=== PATIENT | male | born 1955 | race Caucasian/White ===

== ENCOUNTER → 2016-08-02 | Outpatient (CLI) | payer BC ==
[~2016-08-02] MED LIST: ALBU18002 INH; ALBU1AER9 PO; ASCA500 PO; ASPI-232 PO; CHOL100010 PO; CHOL100041 PO; LISI-461 PO; METO-217 PO; MOME200A INH; MONT1TAB3 PO; MULT-506 PO; OXYC-57 PO; PRLSR20 PO; SNG10 PO; VITBC PO; WARF2TAB PO; ZINC PO
--- NOTE | 2016-08-02 12:51 | DIAGNOSTIC IMAGING REPORT ---
RIGHT KNEE 1 OR 2 VIEWS CLINICAL HISTORY: Right patellar fracture COMPARISON STUDY: 07/04/2016 FINDINGS: There are postsurgical changes of a total right knee arthroplasty. There is a fracture of the mid patellar pole, unchanged in alignment from the prior study. There is a suprapatellar joint effusion. There is anterior soft tissue swelling. IMPRESSION: No change in the alignment of the mid patellar fracture. Electronically signed by: Gino Townsend M.D. 08/02/2016 12:49 PM Dictated Date/Time: 08/02/2016 12:47 PM
== END | disposition home or self-care (01) ==
LOC: C.RDSM 12:00
PROVIDERS: ATTEND Physical Medicine & Rehabilitation Sports Medicine
DX: S82.009A Unspecified fracture of unspecified patella, initial encounter for closed fracture (principal); X58.XXXA Exposure to other specified factors, initial encounter

== ENCOUNTER → 2016-08-19 | Outpatient (CLI) | payer BC | END | disposition home or self-care (01) | LOC: C.RDSM 12:55 | PROVIDERS: ATTEND Physical Medicine & Rehabilitation Sports Medicine | DX: S82.031A Displaced transverse fracture of right patella, initial encounter for closed fracture (principal); X58.XXXA Exposure to other specified factors, initial encounter ==

== ENCOUNTER → 2016-09-23 | Outpatient (CLI) | payer BC | END | disposition home or self-care (01) | LOC: C.RDSM 08:00 | PROVIDERS: ATTEND Physical Medicine & Rehabilitation Sports Medicine | DX: S82.031A Displaced transverse fracture of right patella, initial encounter for closed fracture (principal); X58.XXXA Exposure to other specified factors, initial encounter ==

== ENCOUNTER → 2016-11-18 | Outpatient (CLI) | payer BC | END | disposition home or self-care (01) | LOC: C.RDSM 07:45 | PROVIDERS: ATTEND Physical Medicine & Rehabilitation Sports Medicine | DX: S82.031A Displaced transverse fracture of right patella, initial encounter for closed fracture (principal); X58.XXXA Exposure to other specified factors, initial encounter ==

== ENCOUNTER 2016-12-07 16:36 | Emergency (ER) | payer BC ==
[~2016-12-07] VITALS: Ht 182.9 cm; Wt 116.2 kg
[~2016-12-07 16:36] MED LIST changes: -ALBU18002 INH; -CHOL100041 PO; -MONT1TAB3 PO
[2016-12-07 16:39] VITALS: TEMP 36.6; Ht 182.9 cm; Wt 116.2 kg
[2016-12-07] MEDS ORDERED: CHOL100041 PO (17:14)
[2016-12-07] MEDS ORDERED: MONT1TAB3 PO (17:14)
[2016-12-07] MEDS ORDERED: ALBU18002 INH (17:14)
--- NOTE | 2016-12-07 17:15 | DIAGNOSTIC IMAGING REPORT ---
RIGHT KNEE 2 VIEWS CLINICAL HISTORY: Right knee pain. FINDINGS: AP and crosstable lateral views of the right knee are compared to study dated 07/04/2016. The skeletal structures are osteopenic. A right knee arthroplasty is in near-anatomic alignment. No periprosthetic lucency is identified. No acute fracture is seen. There is an incompletely healed fracture through the mid pole of the patella seen on the lateral view. A calcified fabella is incidentally noted. There is a large joint effusion. Prepatellar soft tissue edema is noted. IMPRESSION: 1. Soft tissue edema and joint effusion. No acute fracture is identified. 2. There is an incompletely healed patellar fracture. 3. A right knee arthroplasty is in near-anatomic alignment. Electronically signed by: Prosper Watters M.D. 12/07/2016 5:14 PM Dictated Date/Time: 12/07/2016 5:12 PM
--- NOTE | 2016-12-07 17:18 | EMERGENCY ROOM VISIT NOTE ---
History Report prepared by Rima: Victor M Bazzi Under the Supervision of: Dr. Mars Palencia M.D. First contact with patient: 16:44 Chief Complaint: KNEEPAIN Stated Complaint: RT KNEE PAIN History of Present Illness The patient is a 61 year old male who presents to the Emergency Room with complaints of persistent right knee pain that started 4 hours ago. The patient has had a history of 3 knee surgeries on this knee. The patient had a knee replacement three years ago and has had it fixed in 2 following surgeries in the past two years. Today, the patient was talking to someone when he started to turn and leave. He felt something pop in his knee and the person he was talking to also heard the pop. The patient notes that the discomfort is mostly on the inside of his right knee. He rates this discomfort as a 4 out of 10 in severity. He notes that discomfort has gotten somewhat better since earlier today, but he is still in some discomfort. He is able to walk, but it is uncomfortable. Source of History: patient Onset: 4 hours ago Position: knee (right) Symptom Intensity: 4/10 in severity Timing: other (persistent) Modifying Factors (Worsening): movement (walking) Review of Systems See HPI for pertinent positives & negatives. A total of 10 systems reviewed and were otherwise negative. Past Medical & Surgical Medical Problems: (1) Loose orthopedic implant (2) Traumatic arthropathy, right knee Family History No pertinent family history Social History Smoking Status: Former Smoker Drug Use: none Marital Status: Housing Status: lives with family Occupation Status: employed Current/Historical Medications Scheduled Ascorbic Acid (Vitamin C), 1 TAB PO QAM Aspirin (Aspir-81), 1 TAB PO QAM Cholecalciferol (D 1000), 1,000 UNITS PO QAM Lisinopril (Zestril), 10 MG PO QAM Metoprolol Succinate (Toprol Xl), 50 MG PO QAM Mometasone Furoate-Formoterol (Dulera 200/5 Mcg), 1 PUFF INH BID Montelukast Sodium (Singulair), 10 MG PO QPM Multivitamin (Multivitamin), 1 TAB PO QAM Omeprazole (Prilosec), 20 MG PO BID Scheduled PRN Albuterol Sulfate (Proair Respiclick), 2 PUFFS INH Q4H PRN for Shortness of Breath Allergies Coded Allergies: Gluten (Verified Allergy, Severe, CELIAC DZ, REQUESTS ALL MEDS BE GLUTEN FREE, 12/07/16) Sulfa Antibiotics (Verified Allergy, Intermediate, HIVES, 12/07/16) Aminophylline (Verified Adverse Reaction, Intermediate, hot, flush, sweating, see below, 12/07/16) DIAPHORESIS, NAUSEA, LEFT ARM PAIN Grass (Verified Adverse Reaction, Unknown, hay fever, 12/07/16) Theophylline (Verified Adverse Reaction, Unknown, hot, sweat, 12/07/16) Physical Exam Vital Signs Date Time Temp Pulse Resp B/P Pulse Ox O2 Delivery O2 Flow Rate FiO2 12/07/16 17:44 60 18 131/83 96 12/07/16 16:39 36.6 66 20 142/76 96 Room Air Physical Exam GENERAL: Patient is a healthy-appearing well-nourished HEAD: Normocephalic atraumatic EYES: Ocular movements intact pupils equal and react to light OROPHARYNX mucous membranes are moist no exudates present no erythema or edema present NECK: Supple no nuchal rigidity CHEST: Good equal expansion BACK: No CVA tenderness EXTREMITIES: No pain upon palpation normal muscle strength in all groups no clubbing cyanosis or edema, patient is neurovascularly intact the right foot, has a normal anterior posterior drawer sign. There is slight tenderness to the medial side of the knee NEURO: Patient is following commands is answering questions appropriately. Alert and oriented x3 Cranial Nerves 2-12 grossly intact Medical Decision & Procedures ER Provider Diagnostic Interpretation: RIGHT KNEE 2 VIEWS CLINICAL HISTORY: Right knee pain. FINDINGS: AP and crosstable lateral views of the right knee are compared to study dated 07/04/2016. The skeletal structures are osteopenic. A right knee arthroplasty is in near-anatomic alignment. No periprosthetic lucency is identified. No acute fracture is seen. There is an incompletely healed fracture through the mid pole of the patella seen on the lateral view. A calcified fabella is incidentally noted. There is a large joint effusion. Prepatellar soft tissue edema is noted. IMPRESSION: 1. Soft tissue edema and joint effusion. No acute fracture is identified. 2. There is an incompletely healed patellar fracture. 3. A right knee arthroplasty is in near-anatomic alignment. Electronically signed by: Prosper Watters M.D. 12/07/2016 5:14 PM Dictated Date/Time: 12/07/2016 5:12 PM ED Course 1648: Past medical records reviewed. The patient was evaluated in room C4. A complete history and physical examination was performed. Medical Decision This is a 61-year-old male who presents emergency department complaining of pain to the right knee. The patient has had multiple surgeries to this knee. Because of the multiple surgeries the patient was sent for an x-ray of the knee. This did not show any evidence of acute fracture dislocation or subluxation. He does have an old patella fracture which comparing to previous films does not appear to be changed. I recommended that the patient be placed in a knee immobilizer along with crutches however the patient has these at home and is refusing them here. I recommended that the patient follow-up with his surgeon. Patient and are in agreement with the treatment plan. Impression Primary Impression: Knee pain Scribe Attestation The scribe's documentation has been prepared under my direction and personally reviewed by me in its entirety. I confirm that the note above accurately reflects all work, treatment, procedures, and medical decision making performed by me. Departure Information Dispostion Home / Self-Care Referrals Shlomo Handley M.D. (PCP) Patient Instructions My [facility] Problem Qualifiers Primary Impression: Knee pain Laterality: right Chronicity: unspecified Qualified Codes: M25.561 - Pain in right knee
[2016-12-07 17:44] VITALS: BP 131/83; PULSE 60; O2SAT 96
[2017-05-13] MEDS ORDERED: MOME200A INH (10:38)
== END 2016-12-07 17:46 | disposition home or self-care (01) ==
LOC: C.EDB 16:38 → C.EDC 17:46
DX: M25.561 Pain in right knee (principal); Z96.651 Presence of right artificial knee joint; Z87.891 Personal history of nicotine dependence; Z79.899 Other long term (current) drug therapy

== ENCOUNTER → 2016-12-30 | Outpatient (CLI) | payer BC ==
[~2016-12-30] MED LIST changes: +ALBU18002 INH; -ALBU1AER9 PO; -CHOL100010 PO; +CHOL100041 PO; +MONT1TAB3 PO; -OXYC-57 PO; -SNG10 PO; -VITBC PO; -WARF2TAB PO; -ZINC PO
== END | disposition home or self-care (01) ==
LOC: C.RDSM 12:43
PROVIDERS: ATTEND Physical Medicine & Rehabilitation Sports Medicine
DX: S82.0 Fracture of patella (principal); X58.XXXA Exposure to other specified factors, initial encounter

== ENCOUNTER → 2017-05-26 | Outpatient (CLI) | payer BC | END | disposition home or self-care (01) | LOC: C.RDSM 07:45 | PROVIDERS: ATTEND Physical Medicine & Rehabilitation Sports Medicine | DX: M17.0 Bilateral primary osteoarthritis of knee (principal) ==

== ENCOUNTER → 2017-06-16 | Day surgery (SDC) | payer BC ==
[2017-06-13 07:35] VITALS: Ht 180.3 cm; Wt 113.6 kg
[~2017-06-16] VITALS: Ht 180.3 cm; Wt 113.6 kg
[~2017-06-16] MED LIST changes: +500ML BSS 0.3ML EPI 1:1000PF IRRIG ONE; +ACETAMINOPHEN 325 MG TAB PO PRN; +AMVISC PLUS 0.8ML SYRINGE INT OCU ONE; +ATROPINE SULFATE 0.1 MG/ML 5ML SYR IV PRN; +BRIMONIDINE TART 0.2% OP SOLN PER DROP CHARGE ONE; +BSS FLUSH ONE; +ENDOCOAT 0.85ML SYRINGE INT OCU ONE; +EpHEDrine SULFATE INJ 50 MG/ML AMP IV PRN; +EpINEphrine INJ 1MG/ML AMP 1 MG/ML AMP ONE; +LACTATED RINGER'S 1000ML 500 ML IV SCH; +LIDOCAINE 4% OP SOLN DROP CHARGE ONE; +LIDOCAINE 4% OP SOLN DROP CHARGE OPL ONE; +LIDOCAINE HCL 1% MPF 2 ML VIAL ONE; +MIDAZOLAM HCL 1 MG/ML 2ML VIAL ONE; +MOXIFLOXACIN OPH SOLN PER DROP CHARGE ONE; +POVIDONE-IODINE OP SOLN 30 ML BTL ONE; +PROPARACAINE 0.5% OP SOLN PER DROP CHARGE OPL SCH; +TOBRAMYCIN/DEXAMETHASONE OPH OINT PER APPLN CHARGE ONE
[2017-06-16] MEDS: PHENYLEPHRINE HCL 2.5% OP SOLN PER DROP CHARGE OPL SCH ×2 (14:00→14:05)
[2017-06-16] MEDS: TROPICAMIDE 1% OP SOLN PER DROP CHARGE OPL SCH ×2 (14:01→14:06)
[2017-06-16] MEDS: CYCLOPENTOLATE HCL 1% OP SOLN PER DROP CHARGE OPL SCH ×2 (14:02→14:07)
[2017-06-16] MEDS: KETOROLAC 0.5% OP SOLN PER DROP CHARGE OPL SCH ×2 (14:03→14:08)
[2017-06-16] MEDS: MOXIFLOXACIN OPH SOLN PER DROP CHARGE OPL SCH ×2 (14:04→14:14)
--- NOTE | 2017-06-16 14:55 | History & Physical Bridge - SC ---
H&P Re-Evaluation Bridge Note: I have examined the patient, reviewed the History & Physical and in the interval since the performance of the History & Physical I have noted the following changes of clinical significance: No changes noted
[2017-06-16 15:42] VITALS: TEMP 36.7
--- NOTE | 2017-06-16 15:43 | Discharge Instructions-SurgCtr ---
Discharge Instructions Date of Service Jun 16, 2017. Visit Reason for Visit: Cataract Left Eye Discharge Discharge Diagnosis / Problem: cataract left eye Discharge Goals Goal(s): Improve function Activity Recommendations Activity Limitations: per Instructions/Follow-up section Lifting Limitations: no more than 5 pounds Anesthesia . Post Anesthesia Instructions: If you have had General Anesthesia or IV Sedation: * Do not drive today. * Resume driving when surgeon permits. * Do not make important decisions or sign legal documents today. * Call surgeon for: 1. Temperature elevations greater than 101 degrees F. 2. Uncontrollable pain. 3. Excessive bleeding. 4. Persistent nausea and vomiting. 5. Medication intolerance (nausea, vomiting or rash). * For nausea and vomiting use only clear liquids such as: tea, soda, bouillon until nausea subsides, then gradually increase diet as tolerated. * If you have any concerns or questions, call your surgeon's office. If physician is unavailable and it is an emergency, call 911 or go to the nearest emergency room. . Instructions / Follow-Up Instructions / Follow-Up ACTIVITY RECOMMENDATIONS: * Light activities * You may walk outside, read, watch television. * Mild irritation and blurred vision are common for the first few days, redness around the white part of the eye is common. MEDICATIONS: Resume previous medications unless instructed otherwise by your surgeon. Eye drops (today and tomorrow): Gatifloxacin - one drop in operative eye every 2 hours while awake Prednisolone 1% - one drop in operative eye every 2 hours while awake Bromfenac - one drop in operative eye once daily SPECIAL CARE INSTRUCTIONS: * If any problems or concerns, please call Dr. Bee's office at . * Keep plastic shield taped over eye to sleep at night. * Keep plastic shield taped over eye except to administer eye drops. * Keep plastic shield on until office visit the following day. FOLLOW UP VISIT: Follow-up with Dr. Bee in the [place] office as scheduled. If not already scheduled, please call the office at . Diet Recommendations Home Diet: resume previous diet Procedures Procedures Performed: Left Cataract Phacoemulsification With Intraocular Lens Implant Pending Studies Studies pending at discharge: no Medical Emergencies . Who to Call and When: Medical Emergencies: If at any time you feel your situation is an emergency, please call 911 immediately. . Non-Emergent Contact Non-Emergency issues call your: Money Order Clerk . . "Provider Documentation" section prepared by Reymundo Bee. .
--- NOTE | 2017-06-16 15:45 | [facility] Operative Report ---
Operative Report Operative Date Jun 16, 2017. Pre-Operative Diagnosis Cataract Left Eye Post-Operative Diagnosis Same Procedure(s) Performed Left Cataract Phacoemulsification With Intraocular Lens Implant Surgeon Dr. Bee Fire Management Specialist Surgeon(s) None Estimated Blood Loss 0 Findings cataract left eye Fluids (cc crystalloids) see anesthesia record Specimens None Drains none Anesthesia local with sedation Complication(s) None Disposition Recovery Room / PACU Implants [id number] 21.5 Indications decreased vision left eye Description of Procedure After informed consent was obtained in the holding area the patient was wheeled back to the operating room where cardiac monitoring leads and oxygen by nasal cannula was administered by Anesthesia. Gentle IV sedation was given, and the patient's left eye was prepped and draped in usual sterile fashion. A wire lid speculum was placed into the left eye and the operating microscope was swung into position. Using 0.12 forceps and a Supersharp blade a paracentesis port was made 2 o'clock hours away from the 3 o'clock position of the patient's left eye. 1% non-preserved Lidocaine was then injected into the anterior chamber for anesthesia. A 2.0 mm keratotome blade was then used to make a shelved clear corneal incision at the 3 o'clock position of the left eye. Amvisc was injected into the anterior chamber and a cystotome and Utrata forceps were used to perform a curvilinear capsulorrhexis. BSS on a hydrodissection cannula was used to hydrodissect the lens nucleus away from the capsular bag. The phacoemulsification handpiece was then used in a stop and chop fashion to remove the lens nucleus. The irrigation and aspiration handpiece was then used to remove the residual cortical material. Amvisc was injected into the capsular bag and anterior chamber and a [employer]ch [employer] Lomb MX60 21.5 Diopter intraocular lens was injected into the capsular bag. Irrigation and aspiration handpiece was used to remove the residual viscoelastic material. The wounds were hydrated and noted to be watertight. The wire lid speculum was removed from the eye. Vigamox, Brimonidine, and TobraDex ointment were placed on the eye and it was shielded. It should be noted that EndoCoat was used extensively during the case to protect the cornea endothelium. DISPOSITION: The patient tolerated the procedure well and was wheeled to the post anesthesia care unit in stable condition. I attest to the content of the Intraoperative Record and any orders documented therein. Any exceptions are noted below. I attest to the content of the Intraoperative Record and any orders documented therein. Any exceptions are noted below.
--- NOTE | 2017-06-16 16:02 | Anesthesia Progress Nt - [facility] ---
Anesthesia Post Op Note Date & Time Jun 16, 2017 at 16:02 Vital Signs Pain Intensity: 0 Vital Signs Past 12 Hours Date Time Temp Pulse Resp B/P (MAP) Pulse Ox O2 Delivery O2 Flow Rate FiO2 06/16/17 15:42 36.7 73 12 119/81 (94) 97 Room Air 06/16/17 13:55 36.8 74 18 143/92 (109) 97 Room Air Notes Mental Status: alert / awake / arousable, participated in evaluation Pt Amnestic to Procedure: Yes Nausea / Vomiting: adequately controlled Pain: adequately controlled Airway Patency, RR, SpO2: stable & adequate BP & HR: stable & adequate Hydration State: stable & adequate Anesthetic Complications: no major complications apparent
[2017-06-16 16:07] VITALS: BP 132/83; PULSE 68; O2SAT 98
== END | disposition home or self-care (01) ==
LOC: X.SURG 13:38
PROVIDERS: ATTEND Ophthalmology
DX: H25.12 Age-related nuclear cataract, left eye (principal); I10 Essential (primary) hypertension; J45.909 Unspecified asthma, uncomplicated

== ENCOUNTER → 2017-08-13 | Outpatient (CLI) | payer BC ==
[~2017-08-13] MED LIST changes: -500ML BSS 0.3ML EPI 1:1000PF IRRIG ONE; -ACETAMINOPHEN 325 MG TAB PO PRN; -AMVISC PLUS 0.8ML SYRINGE INT OCU ONE; -ATROPINE SULFATE 0.1 MG/ML 5ML SYR IV PRN; -BRIMONIDINE TART 0.2% OP SOLN PER DROP CHARGE ONE; -BSS FLUSH ONE; -ENDOCOAT 0.85ML SYRINGE INT OCU ONE; -EpHEDrine SULFATE INJ 50 MG/ML AMP IV PRN; -EpINEphrine INJ 1MG/ML AMP 1 MG/ML AMP ONE; -LACTATED RINGER'S 1000ML 500 ML IV SCH; -LIDOCAINE 4% OP SOLN DROP CHARGE ONE; -LIDOCAINE 4% OP SOLN DROP CHARGE OPL ONE; -LIDOCAINE HCL 1% MPF 2 ML VIAL ONE; -MIDAZOLAM HCL 1 MG/ML 2ML VIAL ONE; -MOXIFLOXACIN OPH SOLN PER DROP CHARGE ONE; -POVIDONE-IODINE OP SOLN 30 ML BTL ONE; -PROPARACAINE 0.5% OP SOLN PER DROP CHARGE OPL SCH; -TOBRAMYCIN/DEXAMETHASONE OPH OINT PER APPLN CHARGE ONE
--- NOTE | 2017-08-13 08:57 | DIAGNOSTIC IMAGING REPORT ---
CHEST 2 VIEWS ROUTINE HISTORY: 62 years-old Male J45.909 Intrinsic [id number] COMPARISON: Chest radiographs 07/04/2016 TECHNIQUE: PA and lateral views of the chest FINDINGS: Cardiomediastinal and hilar silhouettes are within normal limits. There is no pneumothorax, pleural effusion, focal airspace consolidation or overt pulmonary edema. Bones of the chest appear grossly intact. IMPRESSION: No acute process. The above report was generated using voice recognition software. It may contain grammatical, syntax or spelling errors. Electronically signed by: Bruce Jorge M.D. 08/13/2017 8:56 AM Dictated Date/Time: 08/13/2017 8:55 AM
== END | disposition home or self-care (01) ==
LOC: C.RAD1850 08:32
PROVIDERS: ATTEND Internal Medicine Pulmonary Disease
DX: J45.909 Unspecified asthma, uncomplicated (principal)

== ENCOUNTER → 2017-08-25 | Outpatient (CLI) | payer BC | END | disposition home or self-care (01) | LOC: C.RDSM 08:00 | PROVIDERS: ATTEND Physical Medicine & Rehabilitation Sports Medicine | DX: M17.0 Bilateral primary osteoarthritis of knee (principal) ==

== ENCOUNTER 2017-09-17 23:12 | Emergency (ER) | payer BC ==
[~2017-09-17] VITALS: Ht 182.9 cm; Wt 116.0 kg
[2017-09-17 23:18] VITALS: TEMP 36.7; Ht 182.9 cm; Wt 116.0 kg
[2017-09-17] MEDS ORDERED: GI COCKTAIL PO STA (23:33)
--- NOTE | 2017-09-17 23:44 | EMERGENCY ROOM VISIT NOTE ---
History Report prepared by Rima: Kelly Stratton Under the Supervision of: Dr. Vinny Cook M.D. First contact with patient: 23:25 Chief Complaint: CARDIAC ASSESSMENT Stated Complaint: STOMACH/CHEST DISCOMFORT,INDIGESTION,COUGH-CARD HX History of Present Illness The patient is a 62 year old male who presents to the Emergency Room with complaints of persistent chest pressure that started 3 hours ago. The patient rates his pain a 5/10 in severity. The patient notes he was getting ready for bed and he noticed his chest didn't feel right. He notes the pressure is a "burning" feeling. He denies any recent heart palpitations. He notes he has a history of heart burn and asthma. He has been admitted for asthma in the past. He states he was having trouble breathing earlier today and he used his inhaler. He notes he has a history of asthma and high blood pressure. The patient had a stress test in the past and the results were unremarkable. He notes his mother and father both had cardiac issues. His dad had his first heart attack at 60 years old and his mother had her first heart attack at 70 years old. They both had bypass surgery. The patient has had a sinus infection and a cough and has been taking Amoxicillin. He denies a history of diabetes. He denies a fever, pain in legs, history of blood clots, falls, or recent injuries. Source of History: patient Onset: 3 hours ago Position: chest Symptom Intensity: 5/10 Quality: burning Timing: other (persistent) Associated Symptoms: + cough, No fevers Note: Denies any pain in legs. Additional symptoms: nasal congestion. Review of Systems See HPI for pertinent positives & negatives. A total of 10 systems reviewed and were otherwise negative. Past Medical & Surgical Medical Problems: (1) Loose orthopedic implant (2) Traumatic arthropathy, right knee Family History No pertinent family history Social History Smoking Status: Never Smoker Drug Use: none Marital Status: Housing Status: lives with family Occupation Status: employed Current/Historical Medications Scheduled Ascorbic Acid (Vitamin C), 1 TAB PO QAM Aspirin (Aspir-81), 1 TAB PO QAM Cholecalciferol (D 1000), 1,000 UNITS PO QAM Echinacea (Echinacea), Unknown Dose PO DAILY Irbesartan (Irbesartan), 150 MG PO DAILY Metoprolol Succinate (Toprol Xl), 50 MG PO QAM Mometasone Furoate-Formoterol (Dulera 200/5 Mcg), 2 PUFFS INH QAM Montelukast Sodium (Singulair), 10 MG PO QPM Multivitamin (Multivitamin), 1 TAB PO QAM Omeprazole (Prilosec), 20 MG PO BID Sulindac (Clinoril), 200 MG PO BID Thiamine Hcl (Vitamin B-1), Unknown Dose PO DAILY Zinc Sulfate (Zinc Sulfate), Unknown Dose PO DAILY Scheduled PRN Albuterol Sulf (Proventil 0.083% 2.5MG/3ML), 2.5 MG INH Q4H PRN for Wheezing Albuterol Sulfate (Proair Respiclick), 2 PUFFS INH Q4H PRN for Shortness of Breath Allergies Coded Allergies: Gluten (Verified Allergy, Severe, CELIAC DZ, REQUESTS ALL MEDS BE GLUTEN FREE, 06/13/17) Sulfa Antibiotics (Verified Allergy, Intermediate, HIVES, 06/13/17) Aminophylline (Verified Adverse Reaction, Intermediate, hot, flush, sweating, see below, 06/13/17) DIAPHORESIS, NAUSEA, LEFT ARM PAIN Grass (Verified Adverse Reaction, Unknown, hay fever, 06/13/17) Theophylline (Verified Adverse Reaction, Unknown, hot, sweat, 06/13/17) Physical Exam Vital Signs Date Time Temp Pulse Resp B/P (MAP) Pulse Ox O2 Delivery O2 Flow Rate FiO2 09/18/17 04:31 91 18 138/81 92 09/18/17 02:51 84 16 129/85 94 Mask 8.0 09/18/17 01:39 62 16 142/90 98 Mask 8.0 09/18/17 00:22 70 18 94 Room Air 09/18/17 00:07 69 16 132/76 95 Room Air 09/17/17 23:39 97 Room Air 09/17/17 23:35 79 09/17/17 23:18 36.7 78 22 135/88 94 Room Air Physical Exam GENERAL: Patient is uncomfortable appearing and mildly distressed. HEENT: No acute trauma, normocephalic atraumatic, mucous membranes moist, no nasal congestion, no scleral icterus. NECK: No stridor, no adenopathy, no meningismus, trachea is midline. LUNGS: Diffuse right lung sounds with wheezes and crackles, decreased sounds throughout left lower lobe. HEART: Regular rate and rhythm. No murmurs, rubs, gallops appreciated. ABDOMEN: Soft, nontender, bowel sounds positive, no masses appreciated, no peritonitis. BACK: No midline tenderness, no CVA tenderness EXTREMITIES: Normal motion all extremities, no cyanosis. Trace edema in bilateral shins, he states this is chronic. NEUROLOGIC: Alert and oriented, no acute motor or sensory deficits, no focal weakness, cranial nerves grossly intact. SKIN: No rash, no jaundice, no diaphoresis. Medical Decision & Procedures ER Provider Diagnostic Interpretation: X ray results are stated below per my interpretation: Chest: 1 view: No infiltrate, no effusion, normal cardiac border. Laboratory Results 09/17/17 23:40 Red Blood Count 4.21, Mean Corpuscular Volume 90.5, Mean Corpuscular Hemoglobin 31.8, Mean Corpuscular Hemoglobin Concent 35.2, Mean Platelet Volume 9.1, Neutrophils (%) (Auto) 67.0, Lymphocytes (%) (Auto) 19.1, Monocytes (%) (Auto) 7.9, Eosinophils (%) (Auto) 5.2, Basophils (%) (Auto) 0.4, Neutrophils # (Auto) 7.61, Lymphocytes # (Auto) 2.16, Monocytes # (Auto) 0.89, Eosinophils # (Auto) 0.59, Basophils # (Auto) 0.04 09/17/17 23:40 Test 09/17/17 23:40 09/18/17 02:13 White Blood Count 11.33 K/uL (4.8-10.8) Red Blood Count 4.21 M/uL (4.7-6.1) Hemoglobin 13.4 g/dL (14.0-18.0) Hematocrit 38.1 % (42-52) Mean Corpuscular Volume 90.5 fL (80-100) Mean Corpuscular Hemoglobin 31.8 pg (25-34) Mean Corpuscular Hemoglobin Concent 35.2 g/dl (32-36) Platelet Count 280 K/uL (130-400) Mean Platelet Volume 9.1 fL (7.4-10.4) Neutrophils (%) (Auto) 67.0 % Lymphocytes (%) (Auto) 19.1 % Monocytes (%) (Auto) 7.9 % Eosinophils (%) (Auto) 5.2 % Basophils (%) (Auto) 0.4 % Neutrophils # (Auto) 7.61 K/uL (1.4-6.5) Lymphocytes # (Auto) 2.16 K/uL (1.2-3.4) Monocytes # (Auto) 0.89 K/uL (0.11-0.59) Eosinophils # (Auto) 0.59 K/uL (0-0.5) Basophils # (Auto) 0.04 K/uL (0-0.2) RDW Standard Deviation 42.7 fL (36.4-46.3) RDW Coefficient of Variation 13.1 % (11.5-14.5) Immature Granulocyte % (Auto) 0.4 % Immature Granulocyte # (Auto) 0.04 K/uL (0.00-0.02) Anion Gap 6.0 mmol/L (3-11) Est Creatinine Clear Calc Drug Dose 85.0 ml/min Estimated GFR () 76.4 Estimated GFR (Non- 66.0 BUN/Creatinine Ratio 20.1 (10-20) Calcium Level 8.9 mg/dl (8.5-10.1) Total Bilirubin 0.3 mg/dl (0.2-1) Direct Bilirubin < 0.1 mg/dl (0-0.2) Aspartate Amino Transf (AST/SGOT) 20 U/L (15-37) Alanine Aminotransferase (ALT/SGPT) 24 U/L (12-78) Alkaline Phosphatase 80 U/L (45-117) Troponin I < 0.015 ng/ml (0-0.045) Total Protein 7.8 gm/dl (6.4-8.2) Albumin 3.6 gm/dl (3.4-5.0) Lipase 120 U/L (73-393) Bedside Troponin I < 0.030 ng/ml (0-0.045) Laboratory results as reviewed by me. Medications Administered Medications (Trade) Dose Ordered Sig/Elvie Route Start Time Stop Time Status Last Admin Dose Admin Albuterol/ Ipratropium (Duoneb) 12 ml ONE ONCE INH 09/17/17 23:45 09/17/17 23:46 DC 09/17/17 23:45 12 ML Ranitidine HCl (zANTac SYRUP) 150 mg NOW ONCE PO 09/17/17 23:45 09/17/17 23:46 DC 09/18/17 00:01 150 MG Dexamethasone Sodium Phosphate (Dexamethasone Inj Pf) 10 mg NOW ONCE IV 09/17/17 23:45 09/17/17 23:46 DC 09/18/17 00:02 10 MG Al Hydroxide/Mg Hydroxide (Maalox Susp) 30 ml STK-MED ONCE .ROUTE 09/17/17 23:56 09/17/17 23:57 DC 09/18/17 00:01 30 ML Lidocaine HCl (Viscous Lidocaine 2% Soln) 20 ml STK-MED ONCE .ROUTE 09/17/17 23:57 09/17/17 23:58 DC 09/18/17 00:01 20 ML Nitroglycerin (Nitrostat Tab) 0.4 mg NOW STAT SL 09/18/17 00:57 09/18/17 00:58 DC 09/18/17 01:02 0.4 MG Al Hydroxide/Mg Hydroxide (Maalox Susp) 30 ml STK-MED ONCE .ROUTE 09/18/17 01:43 09/18/17 01:44 DC 09/18/17 01:45 30 ML Lidocaine HCl (Viscous Lidocaine 2% Soln) 20 ml STK-MED ONCE .ROUTE 09/18/17 01:43 09/18/17 01:44 DC 09/18/17 01:45 20 ML ECG Per My Interpretation Indication: chest pain Rate (beats per minute): 70 Rhythm: normal sinus Findings: no acute ischemic change, no ectopy ED Course 2325: The patient was evaluated in room A12B. A complete history and physical exam was performed. 0058: The patient's lung exam has improved but he still has extensive wheezing and crackles in the left lung field, right lung is clear. He notes he had initial improvement of chest discomfort which seems to have mildly come back. 0120: The patient notes the Nitroglycerin is not working, he would like to try another GI cocktail. Lung exam is improving. Patient is still on breathing treatment. 0148: The patient is still having chest discomfort. 0310: I spoke with the patient. His wheezing is starting to return. Oxygen saturation is between 90-92. We discussed the pros and cons of going home vs in hospital treatment. He and his both prefer monitoring in the hospital, which I feel is reasonable. Medical Decision Differential: Cholecystitis, Gallbladder disfunction, Hepatic Disfunction, Gastritis/PUD, Pancreatitis, ACS, Aortic Pathology, PNA, COPD exacerbation, amongst other pathologies entertained. 62 yr old male arrives for low substernal CP as well as breathing difficulty. Minor URI without hallmarks of flu for last few days. Lung exam worse in left but CXR (and then CT) without evidence pneumonia. He has eventual resolution of CP with GI Cocktail x 2, and had no effect with SLNTG. EKG x 2, and Trop x 2 are both negative for evidence of acute ischemia. Given hour neb with vast improvement in breathing though over next few hours while awaiting cardiac rule out his O2 sats began to drop a bit and wheezing returned slightly. With chest discomfort, shortness of breath, LLL findings on exam, and issues with right knee felt reasonable to do CT PE without doing dimer. No evidence PE no aortic issue. No PNA noted either. Suspect CP is gastritis/esophagitis as off prilosec several days, new NSAID, hiatal hernia, and findings URI. Does not appear to be flu like as no fevers, body aches, runny nose, nor other flu like symptoms other than breathing which is more compatible with his Asthma issues. Unlikely GB as no RUQ pain/TTP, no LFT abnormality and I have higher suspicion of other things. He and initially were leaning towards coming in to hospital for monitoring but changed mind after hospitalist consulted. Patient able to ambulate halls without significant SHOB and just mild drop in O2 which returned to low 90s without issue. Breathing comfortably and in no distress. He has steroids and Levaquin at home which he would like to try. He will do pred taper with 60 x2, 40x3, 20x3, 10x3 and will take BID Prilosec during this in conjunction with stopping NSAID and other acid reducing techniques. Well aware of symptoms requiring RTED. and he aware there is still slight chance this is cardiac and can return at any time. Medication Reconcilliation Current Medication List: was personally reviewed by me Blood Pressure Screening Patient's blood pressure: Normal blood pressure Impression Primary Impression: Acute asthma exacerbation Additional Impressions: Gastritis Substernal chest pain Scribe Attestation The scribe's documentation has been prepared under my direction and personally reviewed by me in its entirety. I confirm that the note above accurately reflects all work, treatment, procedures, and medical decision making performed by me. Departure Information Dispostion Home / Self-Care Prescriptions Albuterol Sulf (PROVENTIL 0.083% 2.5MG/3ML) 2.5 Mg/3 Ml Nebu 2.5 MG INH Q4H Y for Wheezing, #1 BOX Prov: Vinny Cook M.D. 09/18/17 Referrals Shlomo Handley M.D. (PCP) Patient Instructions My [facility] Additional Instructions Increase your Prilosec to twice daily for the next 10 days. Return if worsening breathing, chest pains, passing out, weakness, bloody/black stools, vomiting, or other concerns. Rest and keep well hydrated over the next few days. Use your Nebulizer at least every 4 hours over the next day. If needing to use if more you should consider return to ED for repeat evaluations. We are always here to help. Follow up with your primary care provider in the next 1-2 days for repeat evaluation. Problem Qualifiers
[2017-09-17] MEDS ORDERED: DEXAMETHASONE **PF** INJ 10 MG/ML VIAL IV ONE (23:45)
[2017-09-17] MEDS ORDERED: ALBUT/IPRATROP 3MG/0.5MG NEB 3 ML VIAL INH ONE (23:45)
[2017-09-17] MEDS ORDERED: RANITIDINE HCL SYRUP 150 MG/10 ML UDC PO ONE (23:45)
[2017-09-17 23:54] LABS: BASO % 0.4 %; BASO ABS # 0.04 K/uL (0-0.2); EOS % 5.2 %; EOS ABS # 0.59 K/uL (0-0.5); HEMATOCRIT 38.1 % (42-52); HEMOGLOBIN 13.4 g/dL (14.0-18.0); IG# 0.04 K/uL (0.00-0.02); LYMPH % 19.1 %; LYMPH ABS # 2.16 K/uL (1.2-3.4); MEAN CELL VOLUME 90.5 fL (80-100); MEAN CORPUSCULAR HEMOGLOBIN 31.8 pg (25-34); MEAN CORPUSCULAR HGB CONC 35.2 g/dl (32-36); MEAN PLATELET VOLUME 9.1 fL (7.4-10.4); MONO % 7.9 %; MONO ABS # 0.89 K/uL (0.11-0.59); NEUT ABS # 7.61 K/uL (1.4-6.5); PLATELET COUNT 280 K/uL (130-400); RED CELL DISTRIBUTION WIDTH CV 13.1 % (11.5-14.5); RED CELL DISTRIBUTION WIDTH SD 42.7 fL (36.4-46.3); WHITE BLOOD COUNT 11.33 K/uL (4.8-10.8)
[2017-09-17] MEDS ORDERED: ALUMINUM/MAGNESIUM SUSP 30 ML UDC ONE (23:56)
[2017-09-17] MEDS ORDERED: LIDOCAINE HCL 2% VISC SOLN 20 ML UDC ONE (23:57)
[2017-09-18 00:12] LABS: ALBUMIN 3.6 gm/dl (3.4-5.0); ALT/SGPT 24 U/L (12-78); AST/SGOT 20 U/L (15-37); BLOOD UREA NITROGEN 24 mg/dl (7-18); CALCIUM 8.9 mg/dl (8.5-10.1); CARBON DIOXIDE 27 mmol/L (21-32); CREATININE 1.17 mg/dl (0.60-1.40); GLUCOSE 129 mg/dl (70-99); LIPASE 120 U/L (73-393); POTASSIUM 3.7 mmol/L (3.5-5.1); SODIUM 137 mmol/L (136-145)
[2017-09-18] MEDS ORDERED: THIA100T11 PO (00:14)
[2017-09-18] MEDS ORDERED: ZINC1CAP PO (00:15)
[2017-09-18 00:17] LABS: ALKALINE PHOSPHATASE 80 U/L (45-117); TOTAL PROTEIN 7.8 gm/dl (6.4-8.2)
[2017-09-18] MEDS ORDERED: SULI200T4 PO (00:17)
[2017-09-18] MEDS ORDERED: IRBE1TAB48 PO (00:19)
[2017-09-18] MEDS ORDERED: ECHI125T PO (00:20)
[2017-09-18 00:22] VITALS: PULSE 70; O2SAT 94
[2017-09-18] MEDS ORDERED: NITROGLYCERIN 0.4 MG SL PER TAB CHARGE SL STA (00:57)
[2017-09-18] MEDS ORDERED: GI COCKTAIL PO STA (01:23)
[2017-09-18] MEDS ORDERED: ALUMINUM/MAGNESIUM SUSP 30 ML UDC ONE (01:43)
[2017-09-18] MEDS ORDERED: LIDOCAINE HCL 2% VISC SOLN 20 ML UDC ONE (01:43)
[2017-09-18] MEDS ORDERED: OPTIRAY 320 IV PRN (02:00)
[2017-09-18] MEDS ORDERED: ALBINS/ INH (04:16)
[2017-09-18 04:31] VITALS: BP 138/81; PULSE 91; O2SAT 92
--- NOTE | 2017-09-18 06:26 | DIAGNOSTIC IMAGING REPORT ---
(CHEST FOR PE) ANGIO WITH CT DOSE: 790.70 mGy.cm HISTORY: Chest pain dyspnea TECHNIQUE: Multiaxial CT images of the chest were performed following the intravenous administration of contrast to evaluate the pulmonary arteries. Maximal intensity projection images were also obtained. A dose lowering technique was utilized adhering to the principles of ALARA. COMPARISON STUDY: None. FINDINGS: There is a normal caliber thoracic aorta with no evidence for dissection. There is no evidence for pulmonary embolus. No pleural effusions. No pneumothorax. The liver and spleen are unremarkable. No mediastinal or hilar lymphadenopathy. The central airways are patent. The lungs are clear. IMPRESSION: No evidence for pulmonary embolus. The above report was generated using voice recognition software. It may contain grammatical, syntax or spelling errors. Electronically signed by: Ruperto Koenig M.D. 09/18/2017 6:24 AM Dictated Date/Time: 09/18/2017 6:22 AM
--- NOTE | 2017-09-18 06:38 | DIAGNOSTIC IMAGING REPORT ---
CHEST ONE VIEW PORTABLE CLINICAL HISTORY: Atypical chest pain COMPARISON STUDY: No previous studies for comparison. FINDINGS: The cardiac and mediastinal contours are normal. There is no evidence of focal pulmonary consolidation. There is no evidence of failure. No pleural effusions are visualized.[ IMPRESSION: No active disease in the chest. Electronically signed by: Gino Townsend M.D. 09/18/2017 6:37 AM Dictated Date/Time: 09/18/2017 6:36 AM
== END 2017-09-18 04:33 | disposition home or self-care (01) ==
LOC: C.EDB 23:14 → C.EDA 09-18 04:33
DX: J45.901 Unspecified asthma with (acute) exacerbation (principal); K29.70 Gastritis, unspecified, without bleeding; R07.2 Precordial pain; R12 Heartburn; I10 Essential (primary) hypertension; Z79.82 Long term (current) use of aspirin; Z91.048 Other nonmedicinal substance allergy status; Z88.2 Allergy status to sulfonamides; Z88.8 Allergy status to other drugs, medicaments and biological substances; Z82.49 Family history of ischemic heart disease and other diseases of the circulatory system

== ENCOUNTER 2017-10-04 17:53 | Inpatient (IN) | payer BC ==
[~2017-10-04] VITALS: Ht 182.9 cm; Wt 114.9 kg
[~2017-10-04 17:53] MED LIST changes: -AMOX875T PO; -CHOL100027 PO; -ECHI1CAP PO; -OXYC-57 PO; -SNG10 PO; -TPRSR/50 PO; -TPRSR50 PO
[2017-10-04] MEDS ORDERED: SODIUM CHLORIDE 0.9% 1000ML 1,000 ML IV STA (18:19)
[2017-10-04] MEDS ORDERED: ONDANSETRON INJ 2 MG/ML 2 ML VIAL IV STA (18:19)
[2017-10-04] MEDS ORDERED: MoRPHine SULFATE 4 MG/ML 1 ML CARP\\VIAL IV STA (18:19)
--- NOTE | 2017-10-04 18:23 | EMERGENCY ROOM VISIT NOTE ---
History Report prepared by Rima: Chuck Betancourt Under the Supervision of: Dr. Kathy Viera D.O. First contact with patient: 18:01 Chief Complaint: GI ASSESSMENT Stated Complaint: UPPER STOMACH PAIN,POSSIBLE GALL BADDER History of Present Illness The patient is a 62 year old male who presents to the Emergency Room with complaints of constant right-sided abdominal pain beginning last night. The patient states that he was in the emergency department two and a half weeks ago for abdominal pain, and was diagnosed with pneumonia in his left lung and gastritis. He notes that his current abdominal pain is similar to his pain two and a half weeks ago. He reports that he went to the clinic today, and was sent to the emergency department for an ultrasound and blood work. The patient states that his US shows that he has gallstones present. He notes that he was placed on Levaquin and prednisone for his pneumonia and takes medication for high blood pressure. He reports that his blood work showed that his white counts are high. He also complains of nausea and dry heaving. 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 He rates his pain as a 6/10. Pt denies headache, change in vision, fevers, chest pain, shortness of breath, vomiting, diarrhea, bloating, shoulder pain, back pain, pain with urination, and melena. Source of History: patient Onset: last night Position: abdomen (right-sided) Symptom Intensity: 6/10 Timing: constant Associated Symptoms: + nausea, No fevers, No headache, No chest pain, No SOB , No vomiting, No back pain, No melena, No diarrhea, No urinary symptoms Note: He also complains of dry heaving. The patient also denies any change in vision, bloating, and shoulder pain. Review of Systems See HPI for pertinent positives & negatives. A total of 10 systems reviewed and were otherwise negative. Past Medical & Surgical Medical Problems: (1) Celiac disease (2) Cholecystitis (3) Gastritis (4) Hernia (5) Hypertension (6) Loose orthopedic implant (7) Periodic heart flutter (8) Pneumonia (9) Traumatic arthropathy, right knee Surgical Problems: (1) History of knee replacement Family History Diabetes mellitus Heart disease Hypertension Kidney disease Kidney stones Lung disease Social History Smoking Status: Former Smoker Drug Use: none Marital Status: Housing Status: lives with family Occupation Status: employed Current/Historical Medications Scheduled Ascorbic Acid (Vitamin C), 500 MG PO QAM Aspirin (Aspir-81), 81 MG PO QAM Cholecalciferol (Vitamin D 1000 Unit), 1,000 INTER.UNIT PO DAILY Echinacea (Echinacea), 1 CAP PO QAM Irbesartan (Irbesartan), 150 MG PO QAM Metoprolol Succinate (Metoprolol Succinate ER), 50 MG PO QAM Mometasone Furoate-Formoterol (Dulera 200/5 Mcg), 2 PUFFS INH QAM Montelukast Sod (Montelukast Sodium), 10 MG PO QPM Multivitamin (Multivitamin), 1 TAB PO QAM Omeprazole (Prilosec), 20 MG PO BID Thiamine Hcl (Vitamin B-1), 100 MG PO DAILY Zinc Sulfate (Zinc Sulfate), 1 CAP PO DAILY Scheduled PRN Albuterol Sulfate (Proair Respiclick), 2 PUFFS INH Q4H PRN for Shortness of Breath Allergies Coded Allergies: Gluten (Verified Allergy, Severe, CELIAC DZ, REQUESTS ALL MEDS BE GLUTEN FREE, 06/13/17) Sulfa Antibiotics (Verified Allergy, Intermediate, HIVES, 06/13/17) Aminophylline (Verified Adverse Reaction, Intermediate, hot, flush, sweating, see below, 06/13/17) DIAPHORESIS, NAUSEA, LEFT ARM PAIN Grass (Verified Adverse Reaction, Unknown, hay fever, 06/13/17) Lisinopril (Verified Adverse Reaction, Unknown, Cough, 10/04/17) Theophylline (Verified Adverse Reaction, Unknown, hot, sweat, 06/13/17) Physical Exam Vital Signs Date Time Temp Pulse Resp B/P (MAP) Pulse Ox O2 Delivery O2 Flow Rate FiO2 10/04/17 17:56 37.0 111 20 168/102 97 Room Air Physical Exam GENERAL: alert, well appearing, well nourished, no distress, non-toxic EYE EXAM: normal conjunctiva, PERRL and EOM's grossly intact OROPHARYNX: no exudate, no erythema, lips, buccal mucosa, and tongue normal and mucous membranes are mildly dry NECK: supple, no nuchal rigidity, no adenopathy, non-tender LUNGS: Clear to auscultation. Normal chest wall mechanics HEART: no murmurs, S1 normal and S2 normal ABDOMEN: abdomen soft, normo-active bowel sounds, no masses, no rebound or guarding, RUQ tenderness BACK: Back is symmetrical on inspection and there is no deformity, no midline tenderness, no CVA tenderness. SKIN: no rashes and no bruising UPPER EXTREMITIES: upper extremities are grossly normal. LOWER EXTREMITIES: No pitting edema, effusion or right knee (chronic) NEURO EXAM: Normal sensorium, cranial nerves II-XII grossly intact, normal speech, no gross weakness of arms, no gross weakness of legs. Medical Decision & Procedures ER Provider Diagnostic Interpretation: ABDOMEN LIMITED (US) - done 10/04/17 1117 FINDINGS: The imaged pancreas is unremarkable with the majority of the pancreas obscured by bowel gas. The imaged liver appears unremarkable without intrahepatic biliary ductal dilation or focal hepatic mass lesions identified. Common bile duct is mildly dilated at 7 mm without obstructing stone or lesion identified. There are multiple stones within the gallbladder lumen. Gallbladder wall measures in the upper limits of normal at 3 mm. No pericholecystic fluid. Sonographic Vega sign reported as positive. The imaged right kidney is unremarkable without hydronephrosis IMPRESSION: 1. Cholelithiasis with gallbladder wall measuring in the upper limits of normal is noted in addition to a positive sonographic Vega's sign. No associated pericholecystic fluid or significant gallbladder distention. Correlate clinically to exclude developing acute cholecystitis. 2. Mild dilation of the common bile duct at 7 mm without obstructing stone or lesion identified. The above report was generated using voice recognition software. It may contain grammatical, syntax or spelling errors. Electronically signed by: Bruce Jorge M.D. 10/04/2017 11:23 AM Radiology results have been interpreted by the radiologist and reviewed by me. CHEST ONE VIEW PORTABLE FINDINGS: Cardiomediastinal and hilar silhouettes are within normal limits. There is no pneumothorax, pleural effusion, focal airspace consolidation or overt pulmonary edema. The bones of the chest appear grossly intact. IMPRESSION: No acute process. The above report was generated using voice recognition software. It may contain grammatical, syntax or spelling errors. Electronically signed by: Bruce Jorge M.D. 10/04/2017 6:39 PM Laboratory Results 10/04/17 18:30 Test 10/04/17 18:30 3/10/18 18:39 Prothrombin Time 10.0 SECONDS (9.0-12.0) Prothromb Time International Ratio 1.0 (0.9-1.1) Anion Gap 5.0 mmol/L (3-11) Est Creatinine Clear Calc Drug Dose 83.1 ml/min Estimated GFR () 74.9 Estimated GFR (Non- 64.6 BUN/Creatinine Ratio 17.6 (10-20) Calcium Level 9.7 mg/dl (8.5-10.1) Total Bilirubin 0.7 mg/dl (0.2-1) Aspartate Amino Transf (AST/SGOT) 18 U/L (15-37) Alanine Aminotransferase (ALT/SGPT) 23 U/L (12-78) Alkaline Phosphatase 81 U/L (45-117) Troponin I < 0.015 ng/ml (0-0.045) Total Protein 7.8 gm/dl (6.4-8.2) Albumin 3.6 gm/dl (3.4-5.0) Globulin 4.2 gm/dl (2.5-4.0) Albumin/Globulin Ratio 0.9 (0.9-2) Lipase 100 U/L (73-393) Bedside Lactic Acid Venous 0.81 mmol/L (0.90-1.70) Laboratory results per my review. Medications Administered Medications (Trade) Dose Ordered Sig/Elvie Route Start Time Stop Time Status Last Admin Dose Admin Sodium Chloride 1,000 ml @ 125 mls/hr Q8H STAT IV 10/04/17 18:19 10/04/17 23:01 DC 10/04/17 18:50 125 MLS/HR Ondansetron HCl (Zofran Inj) 4 mg NOW STAT IV 10/04/17 18:19 10/04/17 18:23 DC 10/04/17 18:50 4 MG Morphine Sulfate (MoRPHine SULFATE INJ) 4 mg NOW STAT IV 10/04/17 18:19 10/04/17 18:23 DC 10/04/17 18:51 4 MG ECG Per My Interpretation Indication: abdominal pain Rate (beats per minute): 93 Rhythm: normal sinus Findings: no acute ischemic change, no ectopy, other (Normal axis, normal intervals) ED Course 1803: The patient was evaluated in room A3. A complete history and physical exam was performed. 1819: Morphine Sulfate 4mg IV, Zofran Inj 4mg IV 1832: I reevaluated and updated the patient. I updated him on who the natural resource economist surgeon was. He was not happy with who was natural resource economist and is going to attempt to call family and get another surgeon to come. 1932: I rechecked the patient. His pain is a little better. He could not get a hold of any other surgeons. I paged Stephany Velazquez. 2019: Discussed the patient's case with Stephany Velazquez. He recommended having the patient be admitted by a hospitalist and listing him as a consult. He suggests that the patient be given an antibiotic. 2027: Upon reevaluation, the patient is stable. I discussed the findings and the treatment plan with the patient. He expresses agreement and understanding. I spoke with Dr. Mccormick of the [facility]. The patient will be evaluated for further management. Medical Decision Differential diagnosis: Etiologies such as appendicitis, diverticulitis, PUD, biliary pathology, UTI, pancreatitis, obstruction, mesenteric ischemia, aortic pathology, infections, inflammatory bowel disease, renal colic, as well as others were entertained. Patient well-appearing, vital signs stable throughout. Pain and nausea improved with medications. Patient was likely evolving cholecystitis given ultrasound findings of leukocytosis. No evidence of elevated lipase or abnormal LFTs. Patient kept n.p.o. as a precaution. General surgery consulted and saw the patient in the emergency room and advised they would prefer medicine to evaluate and admit the patient given hypertension and asthma. They will plan to take patient to the operating room in the morning. They will write orders for antibiotics. Patient aware of all results and agreeable with plan for evaluation for likely admission and possible surgery. No evidence of ascending cholangitis, bacteremia/sepsis, gallstone pancreatitis, doubt perforation, mesenteric ischemia. Patient's hypertension here was noted and likely reactive secondary to pain and situation. No evidence of endorgan damage , EKG changes, other findings to suggest hypertensive urgency/emergency. Medication Reconcilliation Current Medication List: was personally reviewed by me Blood Pressure Screening Patient's blood pressure: Elevated blood pressure Elevated blood pressure will be monitored by hospitalist. Consults Time Called: 1932 Consulting Physician: Stephany Velazquez Returned Call: 2018 Discussed the patient's case. He recommended having the patient be admitted by a hospitalist and listing him as a consult. He suggests that the patient be given an antibiotic. Additional Consults: Time Called: 2026 Consulted Physician: MAGDY Jaeger Returned Call: 2027 Additional Comments: I reviewed the patient's case with MAGDY Jaeger. He will evaluate the patient for further management. Impression Primary Impression: Cholecystitis Additional Impressions: Abdominal pain Hypertension Scribe Attestation The scribe's documentation has been prepared under my direction and personally reviewed by me in its entirety. I confirm that the note above accurately reflects all work, treatment, procedures, and medical decision making performed by me. Departure Information Dispostion Being Evaluated By Hospitalist Referrals Shlomo Handley M.D. (PCP) Patient Instructions My [facility] Problem Qualifiers Additional Impressions: Abdominal pain Abdominal location: right upper quadrant Qualified Codes: R10.11 - Right upper quadrant pain Hypertension Hypertension type: essential hypertension Qualified Codes: I10 - Essential ( primary) hypertension
--- NOTE | 2017-10-04 18:40 | DIAGNOSTIC IMAGING REPORT ---
CHEST ONE VIEW PORTABLE HISTORY: 62 years-old Male pre-op, recent pneumonia preoperative exam. History of pneumonia COMPARISON: Chest radiograph 09/17/2017, CTA chest 09/18/2017 TECHNIQUE: Portable AP view of the chest FINDINGS: Cardiomediastinal and hilar silhouettes are within normal limits. There is no pneumothorax, pleural effusion, focal airspace consolidation or overt pulmonary edema. The bones of the chest appear grossly intact. IMPRESSION: No acute process. The above report was generated using voice recognition software. It may contain grammatical, syntax or spelling errors. Electronically signed by: Bruce Jorge M.D. 10/04/2017 6:39 PM Dictated Date/Time: 10/04/2017 6:39 PM
[2017-10-04] MEDS ORDERED: SNG10 PO ×2 (19:03)
[2017-10-04] MEDS ORDERED: IRBE1TAB48 PO ×2 (19:03)
[2017-10-04] MEDS ORDERED: TPRSR/50 PO ×2 (19:03)
[2017-10-04 19:05] LABS: ALBUMIN 3.6 gm/dl (3.4-5.0); ALT/SGPT 23 U/L (12-78); BLOOD UREA NITROGEN 21 mg/dl (7-18); CALCIUM 9.7 mg/dl (8.5-10.1); CARBON DIOXIDE 29 mmol/L (21-32); CREATININE 1.19 mg/dl (0.60-1.40); GLUCOSE 119 mg/dl (70-99); LIPASE 100 U/L (73-393); POTASSIUM 3.7 mmol/L (3.5-5.1); SODIUM 135 mmol/L (136-145)
[2017-10-04] MEDS ORDERED: CHOL100027 PO ×2 (19:05)
[2017-10-04] MEDS ORDERED: ECHI1CAP PO ×2 (19:05)
[2017-10-04 19:09] LABS: ALKALINE PHOSPHATASE 81 U/L (45-117); AST/SGOT 18 U/L (15-37); TOTAL PROTEIN 7.8 gm/dl (6.4-8.2)
--- NOTE | 2017-10-04 20:36 | Surgery Consultation ---
Consultation Date of Consultation: Oct 04, 2017. Attending Physician: History of Present Illness The patient is a 62 year old male who presents to the Emergency Room with complaints of constant right-sided abdominal pain beginning last night. The patient states that he was in the emergency department two and a half weeks ago for abdominal pain, and diagnosed with pneumonia in his left lung and gastritis. He notes that his current abdominal pain is similar to his pain two and a half weeks ago. He reports that he went to the clinic today, and was sent to the emergency department for an US and blood work. The patient states that his US shows that he has gallstones present. He notes that he was placed on Levaquin and prednisone for his pneumonia and takes medication for high blood pressure. He reports that his blood work showed that his white counts are high. He also complains of nausea and dry heaving. 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 He rates his pain as a 6/10. Pt denies headache, change in vision, fevers, chest pain, shortness of breath, vomiting, diarrhea, bloating, shoulder pain, back pain, pain with urination, and melena. I saw pt at ER and reviewed pt's H/P with pt, pt is still have RUQ pain with nausea, no vomiting, pt denies fever, no cough, Past Medical/Surgical History Medical Problems: (1) Acute asthma exacerbation Status: Acute (2) Gastritis Status: Acute (3) Knee pain Status: Acute (4) Patella fracture Status: Acute (5) Substernal chest pain Status: Acute Family History Diabetes mellitus Heart disease Hypertension Kidney disease Kidney stones Lung disease Social History Smoking Status: Former Smoker Smokeless Tobacco Use: No Alcohol Use: occasionally Drug Use: none Marital Status: Housing Status: lives with family Occupation Status: employed Allergies Coded Allergies: Gluten (Verified Allergy, Severe, CELIAC DZ, REQUESTS ALL MEDS BE GLUTEN FREE, 06/13/17) Sulfa Antibiotics (Verified Allergy, Intermediate, HIVES, 06/13/17) Aminophylline (Verified Adverse Reaction, Intermediate, hot, flush, sweating, see below, 06/13/17) DIAPHORESIS, NAUSEA, LEFT ARM PAIN Grass (Verified Adverse Reaction, Unknown, hay fever, 06/13/17) Lisinopril (Verified Adverse Reaction, Unknown, Cough, 10/04/17) Theophylline (Verified Adverse Reaction, Unknown, hot, sweat, 06/13/17) Home Medications Scheduled Ascorbic Acid (Vitamin C), 500 MG PO QAM Aspirin (Aspir-81), 81 MG PO QAM Cholecalciferol (Vitamin D 1000 Unit), 1,000 INTER.UNIT PO DAILY Echinacea (Echinacea), 1 CAP PO QAM Irbesartan (Irbesartan), 150 MG PO QAM Metoprolol Succinate (Metoprolol Succinate ER), 50 MG PO QAM Mometasone Furoate-Formoterol (Dulera 200/5 Mcg), 2 PUFFS INH QAM Montelukast Sod (Montelukast Sodium), 10 MG PO QPM Multivitamin (Multivitamin), 1 TAB PO QAM Omeprazole (Prilosec), 20 MG PO BID Thiamine Hcl (Vitamin B-1), 100 MG PO DAILY Zinc Sulfate (Zinc Sulfate), 1 CAP PO DAILY Scheduled PRN Albuterol Sulfate (Proair Respiclick), 2 PUFFS INH Q4H PRN for Shortness of Breath Current Inpatient Medications Current Inpatient Medications Medications (Trade) Dose Ordered Sig/Elvie Route Start Time Stop Time Status Last Admin Dose Admin Sodium Chloride 1,000 ml @ 125 mls/hr Q8H STAT IV 10/04/17 18:19 10/05/17 02:18 10/04/17 18:50 125 MLS/HR Review of Systems Constitutional: No fever, No chills, No sweats, No weight loss, No weakness, No fatigue, No problem reported Eyes: No worsening of vision, No eye pain, No redness, No discharge, No diplopia, No problem reported ENT: No hearing loss, No unusual epistaxis, No nasal symptoms, No sore throat, No tinnitus, No dental problems, No trouble swallowing, No problem reported Respiratory: No cough, No sputum, No wheezing, No shortness of breath, No dyspnea on exertion, No dyspnea at rest, No hemoptysis, No problem reported Cardiovascular: No chest pain, No orthopnea, No PND, No edema, No claudication , No palpitations, No problem reported Abdomen: + pain, + nausea, + vomiting Musculoskeletal: + problem reported (Keen replacement), No joint pain, No muscle pain, No swelling, No calf pain Neurologic: No memory loss, No paralysis, No weakness, No numbness/tingling, No vertigo, No balance problems, No problem reported Psychiatric: No depression symptoms, No anhedonism, No anxiety, No insomnia, No substance abuse, No problem reported Endocrine: No fatigue, No excessive thirst, No excessive urination, No problem reported Hematologic / Lymphatic: No abnormal bleeding/bruising, No clotting problems, No swollen lymph nodes, No night sweats, No problem reported Physical Exam Date Time Temp Pulse Resp B/P (MAP) Pulse Ox O2 Delivery O2 Flow Rate FiO2 10/04/17 17:56 37.0 111 20 168/102 97 Room Air General Appearance: WD/WN, + mild distress Head: normocephalic Eyes: normal inspection ENT: normal ENT inspection Neck: supple, no JVD Respiratory/Chest: chest non-tender, lungs clear, normal breath sounds Cardiovascular: regular rate, rhythm, no edema, no gallop, no JVD, no murmur Abdomen/GI: normal bowel sounds, no pulsatile mass, + tenderness (at RUQ, no rebound pain) Extremities/Musculoskelatal: normal inspection, no calf tenderness, normal capillary refill Neurologic/Psych: no motor/sensory deficits, alert, normal mood/affect, oriented x 3 Skin: normal color, warm/dry, no rash Lymphatic: no adenopathy Laboratory Results Last 24 Hours Test 10/04/17 18:30 10/04/17 18:39 Prothrombin Time 10.0 SECONDS Prothromb Time International Ratio 1.0 Sodium Level 135 mmol/L Potassium Level 3.7 mmol/L Chloride Level 101 mmol/L Carbon Dioxide Level 29 mmol/L Anion Gap 5.0 mmol/L Blood Urea Nitrogen 21 mg/dl Creatinine 1.19 mg/dl Est Creatinine Clear Calc Drug Dose 83.1 ml/min Estimated GFR () 74.9 Estimated GFR (Non- 64.6 BUN/Creatinine Ratio 17.6 Random Glucose 119 mg/dl Calcium Level 9.7 mg/dl Total Bilirubin 0.7 mg/dl Aspartate Amino Transf (AST/SGOT) 18 U/L Alanine Aminotransferase (ALT/SGPT) 23 U/L Alkaline Phosphatase 81 U/L Troponin I < 0.015 ng/ml Total Protein 7.8 gm/dl Albumin 3.6 gm/dl Globulin 4.2 gm/dl Albumin/Globulin Ratio 0.9 Lipase 100 U/L Bedside Lactic Acid Venous 0.81 mmol/L Assessment & Plan Assessment: pt is a 62 year old male who presents to ER with 2 days history RUQ pain with nausea and vomiting, U/S study- acute cholecystitis with gallstones IMP: acute cholecystitis with gallstones Plan, I recommend that hospitalist admit pt for control high BP, IV fluid antibiotic, control pain pt will have laparoscopic cholecystectomy, possible open or cholangiogram tomorrow, D/W benefits, risks and alternatives of the procedure, the risks - infection, bleeding, injury CBD, bowel, subtotal cholecystectomy, may need ERCP , AR, DVT, , pt and his understood, they agree with the plan, I answered call questions, repeat labs in am,
[2017-10-04] MEDS ORDERED: IRBESARTAN 150 MG TAB PO ONE (21:08)
[2017-10-04] MEDS ORDERED: ONDANSETRON INJ 2 MG/ML 2 ML VIAL IV PRN (21:15)
[2017-10-04] MEDS ORDERED: ACETAMINOPHEN 325 MG TAB PO PRN (21:15)
[2017-10-04] MEDS ORDERED: MAGNESIUM HYDROXIDE SUSP 30 ML UDC PO PRN (21:15)
[2017-10-04] MEDS ORDERED: NON-FORMULARY MEDICATION (Albuterol Sulfate (Proair Respiclick) 2 PUFFS) INH PRN (21:15)
[2017-10-04] MEDS ORDERED: POLYETHYLENE (MIRALAX) 17 GM PACK PO PRN (21:15)
[2017-10-04] MEDS ORDERED: ALUMINUM/MAGNESIUM/SIMETH (MAALOX MAX) 30 ML UDC PO PRN (21:15)
[2017-10-04] MEDS ORDERED: PIPERACILL/TAZOBAC CONSULT ACTIVE PRN (21:15)
[2017-10-04] MEDS ORDERED: MoRPHine SULFATE 2 MG/ML CARP IV PRN (21:15)
[2017-10-04 22:00] VITALS: BP 156/84; PULSE 90; TEMP 37.2; O2SAT 96; Ht 182.9 cm; Wt 114.9 kg
[2017-10-04] MEDS ORDERED: PIPERACILL/TAZOBAC IV 3.375 GM in DEXTROSE 5% 100ML 100 ML IV SCH (22:00)
[2017-10-04] MEDS ORDERED: ALBUTEROL INH PRN (22:30)
[2017-10-04] MEDS ORDERED: IRBESARTAN 150 MG PO SCH (23:00)
[2017-10-04] MEDS ORDERED: METRONIDAZOLE / NSS 500 MG in PREMIXED NSS 100 ML IV ONE (23:22)
[2017-10-04] MEDS ORDERED: CIPROFLOXACIN / D5W 400 MG in PREMIXED IN D5W 200 ML IV ONE (23:22)
[2017-10-04] MEDS: IRBESARTAN 150 MG PO SCH ×2 (23:34→23:36)
[2017-10-04] MEDS ORDERED: PIPERACILL/TAZOBAC IV 3.375 GM in DEXTROSE 5% 100ML IV ONE (23:45)
[2017-10-04 23:49] VITALS: BP 165/82; PULSE 89; TEMP 36.7; O2SAT 97
[2017-10-05] VITALS (7 sets, daily range): BP systolic 114–153; BP diastolic 71–89; PULSE 81–93; TEMP 36.6–37.3; O2SAT 92–97
[2017-10-05] MEDS ORDERED: METRONIDAZOLE / NSS 500 MG in PREMIXED NSS 100 ML IV SCH
[2017-10-05] MEDS ORDERED: POTASSIUM CHLORIDE INJ 40 MEQ in SODIUM CHLORIDE 0.9% 1000ML 1,000 ML IV SCH ×2
--- NOTE | 2017-10-05 00:04 | History and Physical ---
History & Physical Date & Time of Service: Oct 04, 2017 at 23:49 Chief Complaint: Cholecystitis Primary Care Physician: Shlomo Handley M.D. History of Present Illness Source: patient, family This is a pleasant 62 year old male with HTN, GERD, paroxysmal tacchycardia, and Celiac Disease who presents with epigastric/RUQ pain. The pain started last evening and worsened significantly overnight and into the morning. He notes an 8/10 burning pain present at all times. The pain does not radiate to the back. He cannot time it with meals. Currently the pain is 5 /10. Notes nausea without vomiting. He denies changes in bowel habits. No blood or black stool. No urinary complaints. He notes that he was here 2 weeks ago for a similar pain with some shortness of breaths and was discharged with a diagnosis of PNA. He was seen today in the [facility] Walk-in clinic. He sent for an ultrasound and had CBC. CBC did shows a WBC of 19. In addition, he had a thickened gallbladder to the upper limit of normal. He was sent to the ED for evaluation. He was seen by surgery and the decision was made that he requires cholecystectomy. Past Medical/Surgical History Asthma GERD Hypertension Celiac Disease DJD multiple joints Surgeries - Multiple inguinal and umbilical hernia repairs - TKA L and R knee - TKA revision R knee x 2 - Bilateral wrist fusion - Bilateral rotator cuff surgery - Lef ACL reconstruction - Right meniscal repair x 2 Family History Diabetes mellitus Heart disease Hypertension Kidney disease Kidney stones Lung disease Social History Smoking Status: Former Smoker Smokeless Tobacco Use: No Alcohol Use: occasionally Drug Use: none Marital Status: Occupational Status: employed Immunizations History of Influenza Vaccine: Yes Influenza Vaccine Date: May 03, 2008 History of Tetanus Vaccine?: Yes History of Pneumococcal: Yes History of Hepatitis B Vaccine: Yes Hepatitis Immunization Date: Nov 02, 2007 Allergies Coded Allergies: Gluten (Verified Allergy, Severe, CELIAC DZ, REQUESTS ALL MEDS BE GLUTEN FREE, 06/13/17) Sulfa Antibiotics (Verified Allergy, Intermediate, HIVES, 06/13/17) Aminophylline (Verified Adverse Reaction, Intermediate, hot, flush, sweating, see below, 06/13/17) DIAPHORESIS, NAUSEA, LEFT ARM PAIN Grass (Verified Adverse Reaction, Unknown, hay fever, 06/13/17) Lisinopril (Verified Adverse Reaction, Unknown, Cough, 10/04/17) Theophylline (Verified Adverse Reaction, Unknown, hot, sweat, 06/13/17) Home Medications Scheduled Ascorbic Acid (Vitamin C), 500 MG PO QAM Aspirin (Aspir-81), 81 MG PO QAM Cholecalciferol (Vitamin D 1000 Unit), 1,000 INTER.UNIT PO DAILY Echinacea (Echinacea), 1 CAP PO QAM Irbesartan (Irbesartan), 150 MG PO QAM Metoprolol Succinate (Metoprolol Succinate ER), 50 MG PO QAM Mometasone Furoate-Formoterol (Dulera 200/5 Mcg), 2 PUFFS INH QAM Montelukast Sod (Montelukast Sodium), 10 MG PO QPM Multivitamin (Multivitamin), 1 TAB PO QAM Omeprazole (Prilosec), 20 MG PO BID Thiamine Hcl (Vitamin B-1), 100 MG PO DAILY Zinc Sulfate (Zinc Sulfate), 1 CAP PO DAILY Scheduled PRN Albuterol Sulfate (Proair Respiclick), 2 PUFFS INH Q4H PRN for Shortness of Breath Review of Systems A 10 point review of systems was negative unless stated above. Physical Exam Vital Signs Date Time Temp Pulse Resp B/P (MAP) Pulse Ox O2 Delivery O2 Flow Rate FiO2 10/04/17 22:00 37.2 90 18 156/84 96 Room Air 10/04/17 21:58 84 151/87 98 10/04/17 21:07 91 153/95 96 Room Air 10/04/17 17:56 37.0 111 20 168/102 97 Room Air General Appearance: WD/WN, no apparent distress, + obese Head: normocephalic, atraumatic Eyes: normal inspection, EOMI ENT: normal ENT inspection, pharynx normal Neck: supple, no adenopathy, no JVD Respiratory/Chest: lungs clear, no respiratory distress Cardiovascular: regular rate, rhythm, no gallop, no murmur Abdomen/GI: normal bowel sounds, + guarding (epigastric and RUQ; no rigidity) Back: no CVA tenderness, no muscle spasm Extremities/Musculoskelatal: no calf tenderness, no pedal edema Neurologic/Psych: alert, normal mood/affect, oriented x 3 Skin: normal color, warm/dry, no rash Lymphatic: no adenopathy Diagnostics Laboratory Results Results Past 24 Hours Test 10/04/17 18:30 10/04/17 18:39 Range/Units Prothrombin Time 10.0 9.0-12.0 SECONDS Prothromb Time International Ratio 1.0 0.9-1.1 Sodium Level 135 136-145 mmol/L Potassium Level 3.7 3.5-5.1 mmol/L Chloride Level 101 98-107 mmol/L Carbon Dioxide Level 29 21-32 mmol/L Anion Gap 5.0 3-11 mmol/L Blood Urea Nitrogen 21 7-18 mg/dl Creatinine 1.19 0.60-1.40 mg/dl Est Creatinine Clear Calc Drug Dose 83.1 ml/min Estimated GFR () 74.9 Estimated GFR (Non- 64.6 BUN/Creatinine Ratio 17.6 10-20 Random Glucose 119 70-99 mg/dl Calcium Level 9.7 8.5-10.1 mg/dl Total Bilirubin 0.7 0.2-1 mg/dl Aspartate Amino Transf (AST/SGOT) 18 15-37 U/L Alanine Aminotransferase (ALT/SGPT) 23 12-78 U/L Alkaline Phosphatase 81 45-117 U/L Troponin I < 0.015 0-0.045 ng/ml Total Protein 7.8 6.4-8.2 gm/dl Albumin 3.6 3.4-5.0 gm/dl Globulin 4.2 2.5-4.0 gm/dl Albumin/Globulin Ratio 0.9 0.9-2 Lipase 100 73-393 U/L Bedside Lactic Acid Venous 0.81 0.90-1.70 mmol/L CBC: - WBC 19 - Hb 13.5 Diagnostic Radiology CHEST ONE VIEW PORTABLE HISTORY: 62 years-old Male pre-op, recent pneumonia preoperative exam. History of pneumonia COMPARISON: Chest radiograph 09/17/2017, CTA chest 09/18/2017 TECHNIQUE: Portable AP view of the chest FINDINGS: Cardiomediastinal and hilar silhouettes are within normal limits. There is no pneumothorax, pleural effusion, focal airspace consolidation or overt pulmonary edema. The bones of the chest appear grossly intact. IMPRESSION: No acute process. ABDOMEN LIMITED (US) HISTORY: 62 years-old Male *STAT-- EPIGASTRIC PAIN, RUQ PAIN acute right upper quadrant abdominal pain COMPARISON: None available TECHNIQUE: Multiple real-time sonographic images of the abdominal right upper quadrant were obtained assessing grayscale appearance and color flow FINDINGS: The imaged pancreas is unremarkable with the majority of the pancreas obscured by bowel gas. The imaged liver appears unremarkable without intrahepatic biliary ductal dilation or focal hepatic mass lesions identified. Common bile duct is mildly dilated at 7 mm without obstructing stone or lesion identified. There are multiple stones within the gallbladder lumen. Gallbladder wall measures in the upper limits of normal at 3 mm. No pericholecystic fluid. Sonographic Vega sign reported as positive. The imaged right kidney is unremarkable without hydronephrosis IMPRESSION: 1. Cholelithiasis with gallbladder wall measuring in the upper limits of normal is noted in addition to a positive sonographic Vega's sign. No associated pericholecystic fluid or significant gallbladder distention. Correlate clinically to exclude developing acute cholecystitis. 2. Mild dilation of the common bile duct at 7 mm without obstructing stone or lesion identified. EKG Normal sinus rhythm Normal ECG When compared with ECG of 18-SEP-2017 02:01, No significant change was found Impression Assessment and Plan 62 year old male with acute cholecystitis. Our plan for him is as follows: - Cholecystitis: Surgery consulted. Plan for cholecystectomy tomorrow. NPO after night except meds. IVF when fasting. Zosyn. Morphine 2-4 mg q4hr PRN pain. - Asthma: Continue Albuterol, Dulero and Advair - GERD: Continue Omeprazole - Celiac: Gluten-free diet. Patient notes all meds are 'gluten-free'. Patient is allowed to take his own meds. - Paroxysmal Tacchycardia: Notes no recent history of symptoms. Can admit without cardiac monitoring. Continue Metoprolol. - Hypertension: Continue Metoprolol - DVT: SCD, FERNANDO. Pharmacological anticoagulation on hold pending procedure - Code Status: Level I - Disposition: Med/Surg. Attending addendum: I have physically seen this patient, have supervised the medical residents activities, and agree with the H&P unless as otherwise noted. Assessment and Plan: Acute cholecystitis-- Admit to medical surgical floor. N.p.o. status except essential medications. IV fluids Zosyn IV Surgery consulted for probable cholecystectomy in the morning. Paroxysmal tachycardia/hypertension-- No recent episodes, and rate controlled on metoprolol. Agree for no need for admission to monitored bed. Other treatment plans as above. Advanced Directives Existing Advance Directive: No Existing Living Will: No Existing Power of Massage Therapist: No Resuscitation Status VTE Prophylaxis Will order VTE Prophylaxis: Yes Reason for no VTE drug order: Contraindicated Social Service Consult None Apply
[2017-10-05] MEDS ORDERED: PIPERACILL/TAZOBAC CONSULT ACTIVE PRN (00:15)
[2017-10-05] MEDS ORDERED: CIPROFLOXACIN / D5W 400 MG in PREMIXED IN D5W 200 ML IV SCH (01:00)
[2017-10-05] MEDS: MoRPHine SULFATE 4 MG/ML 1 ML CARP\\VIAL IV PRN ×2 (01:03→22:08)
[2017-10-05] MEDS ORDERED: PIPERACILL/TAZOBAC IV 3.375 GM in DEXTROSE 5% 100ML 100 ML IV SCH (06:00)
[2017-10-05 06:44] LABS: HEMATOCRIT 35.2 % (42-52); MEAN CELL VOLUME 92.1 fL (80-100); MEAN CORPUSCULAR HEMOGLOBIN 31.4 pg (25-34); MEAN CORPUSCULAR HGB CONC 34.1 g/dl (32-36); MEAN PLATELET VOLUME 9.3 fL (7.4-10.4); PLATELET COUNT 228 K/uL (130-400); RED CELL DISTRIBUTION WIDTH CV 13.4 % (11.5-14.5); RED CELL DISTRIBUTION WIDTH SD 44.8 fL (36.4-46.3); WHITE BLOOD COUNT 16.57 K/uL (4.8-10.8)
[2017-10-05 07:23] LABS: CALCIUM 8.1 mg/dl (8.5-10.1); CREATININE 0.94 mg/dl (0.60-1.40); POTASSIUM 3.9 mmol/L (3.5-5.1); TOTAL PROTEIN 6.7 gm/dl (6.4-8.2)
[2017-10-05] MEDS: MOMETASONE INH SCH (07:42)
[2017-10-05] MEDS: FORMOTEROL INH SCH (07:42)
[2017-10-05] MEDS: METOPROLOL SUCC 50 MG PO SCH (07:44)
[2017-10-05] MEDS: EXT REL PO SCH (07:44)
[2017-10-05] MEDS: PIPERACILL/TAZOBAC IV 3.375 GM in DEXTROSE 5% 100ML IV SCH ×3 (08:29→22:07)
--- NOTE | 2017-10-05 08:43 | Family Medicine Progress Note ---
Progress Note Date of Service Oct 05, 2017. Subjective Pt evaluation today including: conversation w/ patient Found patient resting in the bed. He recounts the HPI events. Says his pain improves with morphine but doesn't seem to stay away for long. Denies acute N/ V. Passing gas. Notes no other acute concerns, but does say he was on track to see orthopedics tomorrow for his ongoing right patellar issues and asks if ortho will see him as an inpatient instead. Constitutional: No fever, No chills Respiratory: No cough, No shortness of breath Cardiovascular: + edema (right knee, ongoing), No chest pain Abdomen: + pain, No nausea, No vomiting, No diarrhea Musculoskeletal: + joint pain (right knee, ongoing) Medications Current Inpatient Medications Medications (Trade) Dose Ordered Sig/Elvie Route Start Time Stop Time Status Last Admin Dose Admin Acetaminophen (Tylenol Tab) 650 mg Q4H PRN PO 10/04/17 21:15 11/03/17 21:14 Al Hydrox/Mg Hydrox/Simethicone (Maalox Max Susp) 15 ml Q4H PRN PO 10/04/17 21:15 11/03/17 21:14 Magnesium Hydroxide (Milk Of Magnesia Susp) 30 ml Q6H PRN PO 10/04/17 21:15 11/03/17 21:14 Polyethylene (Miralax Powder Packet) 17 gm DAILY PRN PO 10/04/17 21:15 11/03/17 21:14 Ondansetron HCl (Zofran Inj) 4 mg Q6H PRN IV 10/04/17 21:15 11/03/17 21:14 Miscellaneous Information (Consult) 1 ea UD PRN N/A 10/04/17 21:15 11/03/17 21:14 Morphine Sulfate (MoRPHine SULFATE INJ) 2 mg Q4H PRN IV 10/04/17 21:15 10/18/17 21:14 10/05/17 07:42 2 MG Morphine Sulfate (MoRPHine SULFATE INJ) 4 mg Q4H PRN IV 10/04/17 21:15 10/18/17 21:14 10/05/17 01:03 4 MG Potassium Chloride 40 meq/ Sodium Chloride 1,020 ml @ 125 mls/hr Q8H10M IV 10/05/17 00:00 4/10/18 00:00 10/04/17 23:33 125 MLS/HR Albuterol (Proair Hfa) 2 puffs Q4 PRN INH 10/04/17 22:30 11/03/17 22:29 Mometasone Furoate/ Formoterol Fumar (Dulera) 2 ea QAM INH 10/05/17 09:00 11/04/17 08:59 10/05/17 07:42 2 EA Omeprazole (Prilosec - Substitute) 20 mg BID PO 10/05/17 09:00 11/04/17 08:59 10/05/17 07:43 20 MG Metoprolol Succinate (Toprol Xl Tab) 75 mg DAILY PO 10/05/17 09:00 11/04/17 08:59 10/05/17 07:44 75 MG Irbesartan (Avapro Tab) 150 mg DAILY PO 10/05/17 09:00 11/04/17 08:59 10/04/17 23:36 150 MG Montelukast Sodium (Singulair Tab) 10 mg PM PO 10/05/17 21:00 11/04/17 20:59 Piperacillin Sod/ Tazobactam Sod 3.375 gm/Dextrose 115 ml @ 28.75 mls/ hr Q8H IV 10/05/17 06:00 10/15/17 05:59 10/05/17 08:29 28.75 MLS/HR Objective Vital Signs Date Time Temp Pulse Resp B/P (MAP) Pulse Ox O2 Delivery O2 Flow Rate FiO2 10/05/17 07:11 37.2 93 19 143/84 (103) 92 Room Air 10/04/17 23:49 36.7 89 17 165/82 (109) 97 Room Air 10/04/17 23:10 Room Air 10/04/17 22:00 37.2 90 18 156/84 96 Room Air 10/04/17 21:58 84 151/87 98 10/04/17 21:07 91 153/95 96 Room Air 10/04/17 17:56 37.0 111 20 168/102 97 Room Air Physical Exam Notes: General Appearance: Awake, alert & oriented, mildly uncomfortable due to abdominal pain but stoic, and in no immediate distress. CV: +S1S2 RRR, no murmur. Right knee edema but nothing distally (B). Pulm: Clear to auscultation throughout. Abdomen: +BS, soft, tender in epigastric and RUQ with mild guarding, non- distended. Extremities: Right knee in antonio wrap. Bilateral compression stockings on as well. No pedal edema. Neuro: No gross neuro deficits. Lines: Right arm PIV. Laboratory Results 10/05/17 06:08 10/05/17 06:08 Test 10/04/17 18:30 10/04/17 18:39 10/05/17 06:08 Prothrombin Time 10.0 SECONDS (9.0-12.0) Prothromb Time International Ratio 1.0 (0.9-1.1) Troponin I < 0.015 ng/ml (0-0.045) Lipase 100 U/L (73-393) Bedside Lactic Acid Venous 0.81 mmol/L (0.90-1.70) Red Blood Count 3.82 M/uL (4.7-6.1) Mean Corpuscular Volume 92.1 fL (80-100) Mean Corpuscular Hemoglobin 31.4 pg (25-34) Mean Corpuscular Hemoglobin Concent 34.1 g/dl (32-36) RDW Standard Deviation 44.8 fL (36.4-46.3) RDW Coefficient of Variation 13.4 % (11.5-14.5) Mean Platelet Volume 9.3 fL (7.4-10.4) Anion Gap 9.0 mmol/L (3-11) Est Creatinine Clear Calc Drug Dose 105.3 ml/min Estimated GFR () 99.6 Estimated GFR (Non- 85.9 BUN/Creatinine Ratio 18.6 (10-20) Calcium Level 8.1 mg/dl (8.5-10.1) Total Bilirubin 0.9 mg/dl (0.2-1) Aspartate Amino Transf (AST/SGOT) 15 U/L (15-37) Alanine Aminotransferase (ALT/SGPT) 24 U/L (12-78) Alkaline Phosphatase 65 U/L (45-117) Total Protein 6.7 gm/dl (6.4-8.2) Albumin 3.0 gm/dl (3.4-5.0) Globulin 3.7 gm/dl (2.5-4.0) Albumin/Globulin Ratio 0.8 (0.9-2) Assessment and Plan 62 yo male admitted on [id number] for acute cholecystitis. PMH: Asthma, paroxysmal tachycardia, celiac disease, HTN, GERD, DJD multiple joints PSH: Multiple orthopedic procedures, inguinal and umbilical hernia repairs Acute cholecystitis: As noted in outpatient ultrasound prior to admit. Afebrile but WBC 16. Quite tender. Started on zosyn. Surgery working towards removal this afternoon (based on OR availability, see their notes). Morphine, percocet, tylenol (all prn) for pain. Asthma: No acute respiratory difficulties. 10Mar CXR with no acute process. On albuterol, dulera, singulair. Paroxysmal Tachycardia: Says last such episode, which he can 'always' feel, was about a week ago. Denies any similar symptoms (including CP, SOB) since. On metoprolol 75 daily. Celiac disease: Patient notes all meds are 'gluten-free'. Patient is allowed to take his own meds. GERD: On home omeprazole. Hypertension: On metoprolol, irbesartan. Right knee patellar fracture: Not acute. Well-known to orthopedic surgery, see their related note. Observation for now, not an acute issue. Code status: Full code. Diet: NPO prior to surgery. DVT prophy: Bilateral leg compression stockings. PT/OT: Deferred. Disbo: Admit to med/surg. Medicine is primary service. Resident Physician Supervision Note: I interviewed and examined the patient. Discussed with Dr. Richey and agree with findings and plan as documented in the note. Any exceptions or clarifications are listed here: None Patient is mildly uncomfortable in his abdomen not very much relieved by a lower dose of his IV morphine reportedly his or case has been bumped due to some our conflict we are planning a cholecystectomy for acute cholecystitis Patient's vital signs show temp 37 2 pulse 93 respiration rate 19 BP 143/84 of note white blood cell count is elevated at 16,000 he is maintained on IV Zosyn His abdomen exam is with hypoactive bowel sounds he is tender in the right upper quadrant there is no acute abdomen rebound tenderness but there is guarding Acute cholecystitis continuing Zosyn therapy intravenous hydration and parenteral opiate medications. We are sure the patient receives his oral antihypertensive medications in the perioperative state including his beta- naima Documented By: Thompson Cesar Resident Tracking Resident Involvement: Resident Care Provided Care Provided: Adult Hospital Medicine (inpatient)
--- NOTE | 2017-10-05 08:58 | HISTORY & PHYSICAL EXAMINATION ---
DATE OF ADMISSION: 10/04/2017 HISTORY OF PRESENT ILLNESS: A 62-year-old male admitted for right upper quadrant pain and is prepared for cholecystectomy. He is well known to me from multiple joint replacements and issues for trauma including the patella fracture. At this point in time, he was being prepared for potential right knee revision based on the patellar fracture that is healed and potential resurfacing of his patella with a potential exchange of his femoral implant, which is questionably getting loose since his trauma of his fall. At no point in time has he had any history of an infection in his knee. He was going to be seen in the office tomorrow, 10/06/2017 for preparation for aspiration since he has been on antibiotics multiple times in the past for lung conditions and pneumonias. PAST MEDICAL HISTORY: Remarkable for asthma, GERD, hypertension, celiac disease, and degenerative joint disease. PAST SURGICAL HISTORY: Remarkable for inguinal and umbilical hernia repairs, multiple total joint replacements, bilateral wrist surgeries, rotator cuff surgeries, ACL reconstruction, and meniscal surgeries. FAMILY HISTORY: Remarkable for diabetes mellitus, heart disease, hypertension, kidney disease, kidney stones, and lung disease. SOCIAL HISTORY: Reveals he does not smoke presently but was a former smoker. Social alcohol use. He is . He is employed. IMMUNIZATIONS: His immunizations are up to date. ALLERGIES: HE HAS MULTIPLE ALLERGIES INCLUDING GLUTEN, SULFA, AMINOPHYLLINE, GRASS, AND THEOPHYLLINE. PREADMISSION MEDICATIONS: As noted on med rec sheet. This includes aspirin, cholecalciferol, ascorbic acid, irbesartan, beta naima, montelukast, Prilosec, thiamine and zinc. Also uses p.r.n. albuterol. REVIEW OF SYSTEMS: Has been noted to have pain in the right upper quadrant, otherwise no major issues. His knees are without any gross change. PERTINENT PHYSICAL EXAMINATION: LOWER EXTREMITIES: Today reveals bilateral knees to have a baseline swelling has no major issues. He has no pain with range of motion. His extensor mechanism is intact. Calves are nontender. There is no sign of any overt infection in the knees. ASSESSMENT: Orthopedic patient well known to me for multiple problems who has been taken care by me for years. At this point in time, his main issue is his right knee which he fell and fractured his patella and knocked the patellar button loose which required immediate treatment. At this point, it also looks like he slowly loosened his femoral implant loose. He has intermittent pain. It is unclear whether this is related to the undersurface of the patella versus loosening of his femoral implant. It has been in for years. Present plan is to, once he is off antibiotics to aspirate appropriately and send for Synovasure and alpha defensins. Until he is off antibiotics, we should not aspirate this. We will continue with observation. This was intended to be done tommorrow as he was on oral antibiotics for a pneumonia when I saw hi in the office a few weeks ago. Treat his cholecystitis as appropriate. The aspiration can wait until he as an outpatient, does not need to be done as an inpatient and the lab does not run it here, this has to be sent out anyway. Can be weightbearing to tolerance, both lower extremities. He uses a sleeve for edema control in his legs. Continue to use that as he desires. We will follow peripherally. [facility]U
[2017-10-05] MEDS ORDERED: IRBESARTAN 150 MG TAB PO SCH (09:00)
[2017-10-05] MEDS ORDERED: NON-FORMULARY MEDICATION (Mometasone Furoate-Formoterol (Dulera 200/5 Mcg) 2 PUFFS) INH SCH (09:00)
[2017-10-05] MEDS ORDERED: METOPROLOL SUCC 50MG EXT REL TAB PO SCH (09:00)
[2017-10-05] MEDS ORDERED: NON-FORMULARY MEDICATION (Omeprazole (Prilosec) 20 MG) PO SCH (09:00)
[2017-10-05] MEDS: D5W AND 1/2NSS + 20MEQ KCL 1,000 ML IV SCH ×2 (09:34→18:27)
--- NOTE | 2017-10-05 10:05 | Surgery Progress Note ---
Surgery Progress Note Date of Service Oct 05, 2017. Subjective + feeling well pt is still have some RUQ pain, but no nausea, no vomiting, Objective Vital Signs: Date Time Temp Pulse Resp B/P (MAP) Pulse Ox O2 Delivery O2 Flow Rate FiO2 10/05/17 07:11 37.2 93 19 143/84 (103) 92 Room Air 10/04/17 23:49 36.7 89 17 165/82 (109) 97 Room Air 10/04/17 23:10 Room Air 10/04/17 22:00 37.2 90 18 156/84 96 Room Air 10/04/17 21:58 84 151/87 98 10/04/17 21:07 91 153/95 96 Room Air 10/04/17 17:56 37.0 111 20 168/102 97 Room Air General Appearance: WD/WN, no apparent distress Head: normocephalic Neck: supple, no JVD Respiratory/Chest: chest non-tender, lungs clear Cardiovascular: regular rate, rhythm, no edema, no gallop, no JVD, no murmur Abdomen: normal bowel sounds, non tender, non distended, soft, no organomegaly Extremities: normal range of motion, non-tender, normal inspection Laboratory Results: Results Past 24 Hours Test 10/04/17 18:30 10/04/17 18:39 10/05/17 06:08 Range/Units Prothrombin Time 10.0 9.0-12.0 SECONDS Prothromb Time International Ratio 1.0 0.9-1.1 Sodium Level 135 136 136-145 mmol/L Potassium Level 3.7 3.9 3.5-5.1 mmol/L Chloride Level 101 104 98-107 mmol/L Carbon Dioxide Level 29 23 21-32 mmol/L Anion Gap 5.0 9.0 3-11 mmol/L Blood Urea Nitrogen 21 17 7-18 mg/dl Creatinine 1.19 0.94 0.60-1.40 mg/dl Est Creatinine Clear Calc Drug Dose 83.1 105.3 ml/min Estimated GFR () 74.9 99.6 Estimated GFR (Non- 64.6 85.9 BUN/Creatinine Ratio 17.6 18.6 10-20 Random Glucose 119 131 70-99 mg/dl Calcium Level 9.7 8.1 8.5-10.1 mg/dl Total Bilirubin 0.7 0.9 0.2-1 mg/dl Aspartate Amino Transf (AST/SGOT) 18 15 15-37 U/L Alanine Aminotransferase (ALT/SGPT) 23 24 12-78 U/L Alkaline Phosphatase 81 65 45-117 U/L Troponin I < 0.015 0-0.045 ng/ml Total Protein 7.8 6.7 6.4-8.2 gm/dl Albumin 3.6 3.0 3.4-5.0 gm/dl Globulin 4.2 3.7 2.5-4.0 gm/dl Albumin/Globulin Ratio 0.9 0.8 0.9-2 Lipase 100 73-393 U/L Bedside Lactic Acid Venous 0.81 0.90-1.70 mmol/L White Blood Count 16.57 4.8-10.8 K/uL Red Blood Count 3.82 4.7-6.1 M/uL Hemoglobin 12.0 14.0-18.0 g/dL Hematocrit 35.2 42-52 % Mean Corpuscular Volume 92.1 80-100 fL Mean Corpuscular Hemoglobin 31.4 25-34 pg Mean Corpuscular Hemoglobin Concent 34.1 32-36 g/dl RDW Standard Deviation 44.8 36.4-46.3 fL RDW Coefficient of Variation 13.4 11.5-14.5 % Platelet Count 228 130-400 K/uL Mean Platelet Volume 9.3 7.4-10.4 fL Assessment & Plan laparoscopic cholecystectomy possible open or cholangiogram tomorrow, D/W benefits, risks and alternatives of the procedure, the risks - infection, bleeding, injury CBD, bowel, may need ERCP, MO, DVT, stroke, , pt understood, he agrees with surgery, I answered all questions, U/S study gallbladder, repeat labs in am, will F/U clear liquids
[2017-10-05] MEDS ORDERED: OXYCODONE HCL IR 5 MG TAB (IMMEDIATE RELEASE) PO PRN (10:15)
[2017-10-05] MEDS ORDERED: NURSING VERBAL MED ORDER ONE (11:00)
--- NOTE | 2017-10-05 12:13 | SURGERY PROGRESS NOTE ---
DATE: 10/05/2017 SUBJECTIVE: The patient had been admitted followed by Dr. Arguello; however, the patient requested that if surgery needed to be down that he wanted me to do it. I discussed with Dr. Arguello and he is agreeable. As I saw him recently, the patient has experienced more pain than he last night and he was refractory to morphine short-lived, he took some oxycodone. OBJECTIVE: VITAL SIGNS: His last vitals showed a temperature of 37.2, heart rate 93, respirations 19, blood pressure 143/84. He is exquisitely tender in the right upper quadrant, uncomfortable. LABORATORY DATA: His last laboratory showed a white count of 16.57, hemoglobin 12.0. IMPRESSION AND PLAN: At this point, I recommended that we proceed with surgery today. Certainly, this could be susceptible for an acute gangrenous cholecystitis given the clinical picture, refractory to antibiotic and increasing pain, we will proceed accordingly this afternoon. Risk and complications of surgery were explained to the patient with bleeding, infection, converting to an open procedure and he would like to proceed accordingly. The OR at this time is not available, they are doing a harvest. There is an orthopedic case going on. There is an emergency ERCP that needs to be done for biliary sepsis, another orthopedic case. We will try to speak with the orthopod about intervening with our case prior to that second ortho case.. I did talk with anesthesia. There is no one else available to get another room ready. Risk and complication of lap sinai' c'gram explained to pt and including possible open conversion. RADU
[2017-10-05] MEDS ORDERED: CONRAY 60% 50 ML VIAL ONE (14:50)
[2017-10-05] MEDS ORDERED: LIDOCAINE/EPINEPHRINE 1% 20 ML VIAL ONE (14:50)
[2017-10-05] MEDS ORDERED: FENTANYL CITRATE INJ 50 MCG/1 ML 2 ML VIAL ONE (15:22)
[2017-10-05] MEDS ORDERED: PROPOFOL IV EMULSION 10 MG/ML 20 ML VIAL IV ONE (15:24)
[2017-10-05] MEDS ORDERED: DEXAMETHASONE SOD INJ 4 MG/ML VIAL ONE (15:54)
[2017-10-05] MEDS ORDERED: SUCCINYLCHOLINE 100MG/5ML SYR IV ONE (15:54)
[2017-10-05] MEDS ORDERED: ONDANSETRON INJ 2 MG/ML 2 ML VIAL ONE ×2 (15:54→15:55)
[2017-10-05] MEDS ORDERED: LIDOCAINE HCL 2% 2 ML VIAL (20MG/ML) ONE (15:55)
[2017-10-05] MEDS ORDERED: ROCURONIUM BROMIDE 10 MG/ML 5 ML VIAL IV ONE (15:55)
[2017-10-05] MEDS ORDERED: NEOSTIGMINE METHYLSULFATE 5 MG/5 ML SYR ONE (15:55)
[2017-10-05] MEDS ORDERED: GLYCOPYRROLATE INJ 0.2 MG/ML VIAL ONE (15:55)
[2017-10-05] MEDS ORDERED: HYDROmorphone INJ 1 MG/ML SYR IV PRN (16:15)
[2017-10-05] MEDS ORDERED: EpHEDrine SULFATE INJ 50 MG/ML AMP IV PRN (16:15)
[2017-10-05] MEDS ORDERED: FENTANYL CITRATE INJ 50 MCG/1 ML 2 ML VIAL IV PRN (16:15)
[2017-10-05] MEDS ORDERED: ONDANSETRON INJ 2 MG/ML 2 ML VIAL IV PRN (16:15)
[2017-10-05] MEDS ORDERED: ATROPINE SULFATE 0.1 MG/ML 5ML SYR IV PRN (16:15)
--- NOTE | 2017-10-05 17:06 | [facility] Post Operative Brief Note ---
Immediate Operative Summary Operative Date Oct 05, 2017. Pre-Operative Diagnosis Acute Cholecystitis cholelithiasis Post-Operative Diagnosis Same gangrenous Procedure(s) Performed Laparoscopic Cholecystectomy with Cholangiogram Surgeon Dr Cuadra Service Technician Surgeon(s) None Estimated Blood Loss 25ml Findings See Below gangrenous cholecystitis Specimens A. Gallbladder Culture #1 gallbladder for aerobic and anaerobic Drains 19 anthony per stab Anesthesia Type General
--- NOTE | 2017-10-05 17:10 | DIAGNOSTIC IMAGING REPORT ---
INTRAOPERATIVE CHOLANGIOGRAM CLINICAL HISTORY: Cholecystectomy. Cholelithiasis. COMPARISON STUDY: Ultrasound dated 10/04/2017 FLUOROSCOPY TIME: 2.4 seconds. NUMBER OF FLUOROSCOPIC IMAGES: 1 FINDINGS: The common bile duct is of normal caliber. There are no filling defects. There is free flow into the duodenum. IMPRESSION: No retained calculi identified. Electronically signed by: Gino Townsend M.D. 10/05/2017 5:09 PM Dictated Date/Time: 10/05/2017 5:08 PM
[2017-10-05] MEDS: OXYCODONE/ACETAMINOPHEN 5-325 TAB PO PRN (20:41)
[2017-10-05] MEDS: MONTELUKAST 10 MG PO SCH (20:45)
[2017-10-05] MEDS ORDERED: MONTELUKAST SOD 10 MG TAB PO SCH (21:00)
--- NOTE | 2017-10-05 21:41 | OPERATIVE REPORT ---
DATE OF OPERATION: 10/05/2017 SURGEON: Adonay Cuadra MD. PREOPERATIVE DIAGNOSIS: Acute cholecystitis, cholelithiasis. POSTOPERATIVE DIAGNOSIS: Acute gangrenous cholecystitis, cholelithiasis. PROCEDURE: Laparoscopic cholecystectomy, intraoperative cholangiogram. SUMMARY: After induction of general endotracheal anesthesia, the patient's abdomen was prepped with Betadine solution and properly draped from the nipples down to below the umbilicus area. A timeout was had. The patient had had a previous umbilical hernia repair with mesh; therefore about an inch or so above the scar, we made a linear incision sufficiently enough that we dissected out with Indy to the abdominal wall where an opening in the abdominal wall fascia was made, 0 Vicryl suture was used as stay suture. We entered the peritoneal cavity under direct visualization followed by 5 mm trocar without the sharp edge. CO2 insufflated, slowly we were able then to establish a pneumoperitoneum. The stay sutures were used to control the pneumoperitoneum. At this point, we placed the patient in reverse Trendelenburg position and rotated to the left. We could not see anything in the right upper quadrant, except the omentum was placed over that area to the liver. Under direct visualization, we placed a 10 mm epigastric port with preemptive local analgesia of 1% Xylocaine and two 5 mm subcostal ports in a similar fashion. The omentum was bluntly freed up, we could see the top of the gallbladder that was fairly distended. The color itself did not look normal, but it was not krystle gangrenous at this time what we could appreciate. Therefore, we aspirated to get fair amount of decompression which mostly was light bilious in nature. We then elevated the gallbladder and using mostly blunt dissection, we freed up the omentum that was completely encapsulating the gallbladder all the way down towards the yolande hepatis. We made sure that we were able to just do this blunt dissection. We choked up on the gallbladder as we went down to elevate it up and we could see even with the grasper, it was hard to grab the thick walled. Within the area we made a small opening in the gallbladder and this dark grayish bloody fluid came out consistent what I thought was a gangrenous gallbladder. At this point, I needed to place another 5 mm trocar, which we did just to the left of the midline between the epigastric and umbilical port to place a fan retractor. After we had accomplished this, we continued blunt dissection down to the neck of the gallbladder. One structure came out inferiorly which I thought was mostly fatty tissue, was not 100% sure whether it was a cystic duct which was small. Therefore, we clamped it just after the takeoff from the gallbladder and a small opening right at the gallbladder was made that we could see that this was cholesterol stones coming out. This confirmed that most likely this was the cystic duct. This was mostly dissected out towards the undersurface of the liver, avoiding the yolande hepatis. A small artery was identified, doubly clipped and divided. We took out the gallbladder first leaving the posterior peritoneum as much as possible. We had some spillage of some stones that would retrieve at the end. The gallbladder was very friable. We placed in an Endopouch, taken out intact through the epigastric port. At this point, we went back in, suctioned out the subhepatic area and suprahepatic area and went on and performed a cholangiogram. The area that we had clipped which I thing was the cystic duct was probably indeed it was a cystic duct. We went on and identified it, dissected out more to the point that then I was able to make a small opening in just inferior to the clip that I placed. I placed a #4 urethral catheter, transversed the abdominal wall on Angiocath and positioned in the cystic duct. We took 2 x-rays which showed free flow into the duodenum, very small cystic duct and common bile duct, but no filling defects. Of note, when I first opened the cystic duct to place the catheter, there were small cholesterol stones that came out, but then as we milked it back, there seemed to be some bowel coming out which was no evidence of any further stones. These were really tiny stones. At this point, the cystic duct was doubly clipped and divided securely with 10 mm clip and the subhepatic and suprahepatic area was checked for hemostasis and appeared satisfactory. We suctioned out copiously and lot of the stones that did come out of the gallbladder, we tried to retrieve but these were small. We used a larger suction also to retrieve them. A 19 Ricki drain was placed subhepatic area and taken out lat port suturing in with 2-0 silk. I placed the camera in subcostal ports to visualize the umbilical opening area. There were no adhesions to that area that we could identify. At this point, individual trocars removed and last the umbilical trocar. Wounds were closed with fascial stitch of 0 Vicryl for the epigastric. The sub cut with 4-0 Monocryl. The stay sutures we placed around the initial entry site above the umbilicus was tied as a fascial stitch. The procedure was tolerated well by the patient. Estimated blood loss approximately 25 mL. The patient was taken to recovery room in good condition. I attest to the content of the Intraoperative Record and any orders documented therein. Any exceptions are noted below. MTDD
[2017-10-05] MEDS: HEPARIN SOD 5000 UNIT/0.5 ML CARP SQ SCH (22:16)
--- NOTE | 2017-10-05 23:08 | Anesthesiology Progress Note ---
Anesthesia Post Op Note Date & Time Oct 05, 2017 at 23:08 Vital Signs Pain Intensity: 3 Vital Signs Past 12 Hours Date Time Temp Pulse Resp B/P (MAP) Pulse Ox O2 Delivery O2 Flow Rate FiO2 10/05/17 21:03 36.9 82 19 133/83 (100) 93 Room Air 10/05/17 20:02 36.8 83 19 143/79 (100) 97 Nasal Cannula 4.0 10/05/17 19:03 36.8 88 17 128/81 (97) 96 Nasal Cannula 4.0 10/05/17 18:30 37.3 83 19 140/81 (100) 94 Nasal Cannula 4.0 10/05/17 18:00 Nasal Cannula 2.0 10/05/17 18:00 Nasal Cannula 2.0 10/05/17 18:00 37.1 88 16 153/89 (110) 96 Nasal Cannula 2.0 10/05/17 17:50 86 16 144/79 95 Nasal Cannula 2 10/05/17 17:40 87 16 124/76 94 Nasal Cannula 3 10/05/17 17:30 88 16 125/75 93 Oxymask 10 10/05/17 17:20 36.4 76 16 130/69 92 Oxymask 10 10/05/17 15:00 Room Air Notes Mental Status: alert / awake / arousable, participated in evaluation Pt Amnestic to Procedure: Yes Nausea / Vomiting: adequately controlled Pain: adequately controlled Airway Patency, RR, SpO2: stable & adequate BP & HR: stable & adequate Hydration State: stable & adequate Anesthetic Complications: no major complications apparent
[2017-10-06 02:53] VITALS: BP 102/62; PULSE 69; TEMP 36.6; O2SAT 93
[2017-10-06] MEDS: D5W AND 1/2NSS + 20MEQ KCL 1,000 ML IV SCH (04:26)
[2017-10-06] MEDS: HEPARIN SOD 5000 UNIT/0.5 ML CARP SQ SCH ×3 (05:29→21:27)
[2017-10-06] MEDS: PIPERACILL/TAZOBAC IV 3.375 GM in DEXTROSE 5% 100ML IV SCH ×3 (05:30→21:23)
[2017-10-06] MEDS: OXYCODONE/ACETAMINOPHEN 5-325 TAB PO PRN ×3 (06:05→23:37)
[2017-10-06 06:49] LABS: CREATININE 1.31 mg/dl (0.60-1.40); POTASSIUM 4.8 mmol/L (3.5-5.1)
[2017-10-06 06:50] LABS: ALBUMIN 2.9 gm/dl (3.4-5.0); CALCIUM 8.8 mg/dl (8.5-10.1); TOTAL PROTEIN 7.2 gm/dl (6.4-8.2)
[2017-10-06 07:07] LABS: HEMATOCRIT 34.6 % (42-52); HEMOGLOBIN 11.8 g/dL (14.0-18.0); MEAN CORPUSCULAR HEMOGLOBIN 31.7 pg (25-34); MEAN CORPUSCULAR HGB CONC 34.1 g/dl (32-36); MEAN PLATELET VOLUME 9.5 fL (7.4-10.4); PLATELET COUNT 260 K/uL (130-400); RED CELL DISTRIBUTION WIDTH CV 13.2 % (11.5-14.5); RED CELL DISTRIBUTION WIDTH SD 45.1 fL (36.4-46.3); WHITE BLOOD COUNT 16.54 K/uL (4.8-10.8)
[2017-10-06 07:52] VITALS: BP 122/74; TEMP 36.5; O2SAT 92
[2017-10-06] MEDS: IRBESARTAN 150 MG PO SCH (08:33)
[2017-10-06] MEDS: EXT REL PO SCH (08:33)
[2017-10-06] MEDS: METOPROLOL SUCC 50 MG PO SCH (08:33)
[2017-10-06] MEDS: FORMOTEROL INH SCH (08:34)
[2017-10-06] MEDS: MOMETASONE INH SCH (08:34)
--- NOTE | 2017-10-06 09:50 | Family Medicine Progress Note ---
Progress Note Date of Service Oct 06, 2017. Subjective Reports he is doing well after his surgery yesterday, ate a meal last night, is passing gas , denies vomiting. Voiding well, although has not had a BM yet, and is drinking apple juice to help. Is up and walking. Pain noted in right upper abdomen, but otherwise is doing well. ROS See HPI for pertinent positives and negatives. Medications Current Inpatient Medications Medications (Trade) Dose Ordered Sig/Elvie Route Start Time Stop Time Status Last Admin Dose Admin Acetaminophen (Tylenol Tab) 650 mg Q4H PRN PO 10/04/17 21:15 11/03/17 21:14 Al Hydrox/Mg Hydrox/Simethicone (Maalox Max Susp) 15 ml Q4H PRN PO 10/04/17 21:15 11/03/17 21:14 Magnesium Hydroxide (Milk Of Magnesia Susp) 30 ml Q6H PRN PO 10/04/17 21:15 11/03/17 21:14 Polyethylene (Miralax Powder Packet) 17 gm DAILY PRN PO 10/04/17 21:15 11/03/17 21:14 Ondansetron HCl (Zofran Inj) 4 mg Q6H PRN IV 10/04/17 21:15 11/03/17 21:14 Miscellaneous Information (Consult) 1 ea UD PRN N/A 10/04/17 21:15 11/03/17 21:14 Morphine Sulfate (MoRPHine SULFATE INJ) 2 mg Q4H PRN IV 10/04/17 21:15 10/18/17 21:14 10/05/17 07:42 2 MG Morphine Sulfate (MoRPHine SULFATE INJ) 4 mg Q4H PRN IV 10/04/17 21:15 10/18/17 21:14 10/05/17 22:08 4 MG Albuterol (Proair Hfa) 2 puffs Q4 PRN INH 10/04/17 22:30 11/03/17 22:29 Mometasone Furoate/ Formoterol Fumar (Dulera) 2 ea QAM INH 10/05/17 09:00 11/04/17 08:59 10/06/17 08:34 2 EA Omeprazole (Prilosec - Substitute) 20 mg BID PO 10/05/17 09:00 11/04/17 08:59 10/06/17 08:32 20 MG Metoprolol Succinate (Toprol Xl Tab) 75 mg DAILY PO 10/05/17 09:00 11/04/17 08:59 10/06/17 08:33 75 MG Irbesartan (Avapro Tab) 150 mg DAILY PO 10/05/17 09:00 11/04/17 08:59 10/06/17 08:33 150 MG Montelukast Sodium (Singulair Tab) 10 mg PM PO 10/05/17 21:00 11/04/17 20:59 10/05/17 20:45 10 MG Piperacillin Sod/ Tazobactam Sod 3.375 gm/Dextrose 115 ml @ 28.75 mls/ hr Q8H IV 10/05/17 06:00 10/15/17 05:59 10/06/17 13:44 28.75 MLS/HR Oxycodone/ Acetaminophen (Percocet 5-325mg Tab) 1 tab Q4 PRN PO 10/05/17 11:30 10/19/17 11:29 10/06/17 15:32 1 TAB Ondansetron HCl (Zofran Inj) 4 mg ONE PRN IV 10/05/17 16:15 Heparin Sodium (Porcine) (Heparin Sq 5000 Unit/0.5ml) 5,000 unit Q8 SQ 10/05/17 22:00 11/04/17 21:59 10/06/17 13:51 5,000 UNIT Objective Vital Signs Date Time Temp Pulse Resp B/P (MAP) Pulse Ox O2 Delivery O2 Flow Rate FiO2 10/06/17 15:39 36.4 71 18 150/84 (106) 94 Room Air 10/06/17 15:30 Room Air 10/06/17 12:41 96 Room Air 10/06/17 12:18 36.5 68 16 138/78 (98) 95 Room Air 10/06/17 07:52 36.5 12 122/74 (90) 92 Room Air 10/06/17 07:30 Room Air 10/06/17 02:53 36.6 69 16 102/62 (75) 93 Room Air 10/05/17 23:14 36.6 81 16 114/71 (85) 92 Room Air 10/05/17 23:10 Room Air 10/05/17 21:03 36.9 82 19 133/83 (100) 93 Room Air 10/05/17 20:02 36.8 83 19 143/79 (100) 97 Nasal Cannula 4.0 10/05/17 19:03 36.8 88 17 128/81 (97) 96 Nasal Cannula 4.0 Physical Exam Notes: GENERAL: Awake, alert, in no distress EYES: Normal conjunctiva. Sclera non-icteric. RESPIRATORY: Clear to auscultation. CARDIAC: Regular rate, normal rhythm. Extremities warm and well perfused. Pulses equal. ABDOMEN: Soft, non-distended. Laparoscopic incisions clean and in tact. RUQ drain draining clear light red fluid. LOWER EXTREMITIES: Calves are non-tender. No edema. No discoloration. NEURO: No motor deficits noted. SKIN: No rash or jaundice noted. Laboratory Results 10/06/17 06:06 Red Blood Count 3.72, Mean Corpuscular Volume 93.0, Mean Corpuscular Hemoglobin 31.7, Mean Corpuscular Hemoglobin Concent 34.1, Mean Platelet Volume 9.5 10/06/17 06:06 Test 10/06/17 06:06 White Blood Count 16.54 K/uL (4.8-10.8) Red Blood Count 3.72 M/uL (4.7-6.1) Hemoglobin 11.8 g/dL (14.0-18.0) Hematocrit 34.6 % (42-52) Mean Corpuscular Volume 93.0 fL (80-100) Mean Corpuscular Hemoglobin 31.7 pg (25-34) Mean Corpuscular Hemoglobin Concent 34.1 g/dl (32-36) Platelet Count 260 K/uL (130-400) Mean Platelet Volume 9.5 fL (7.4-10.4) RDW Standard Deviation 45.1 fL (36.4-46.3) RDW Coefficient of Variation 13.2 % (11.5-14.5) Neutrophils % (Manual) 94.0 % Lymphocytes % (Manual) 4.3 % Monocytes % (Manual) 1.7 % Neutrophils # (Manual) 15.55 K/uL (1.4-6.5) Total Absolute Neutrophils 15.55 K/uL (1.4-6.5) Lymphocytes # (Manual) 0.71 K/uL (1.2-3.4) Total Absolute Lymphocytes 0.71 K/uL (1.2-3.4) Monocytes # (Manual) 0.28 K/uL (0.11-0.59) Red Blood Cell Morphology Unremarkable Anion Gap 7.0 mmol/L (3-11) Est Creatinine Clear Calc Drug Dose 75.5 ml/min Estimated GFR () 66.7 Estimated GFR (Non- 57.5 BUN/Creatinine Ratio 13.7 (10-20) Calcium Level 8.8 mg/dl (8.5-10.1) Total Bilirubin 0.7 mg/dl (0.2-1) Aspartate Amino Transf (AST/SGOT) 29 U/L (15-37) Alanine Aminotransferase (ALT/SGPT) 30 U/L (12-78) Alkaline Phosphatase 62 U/L (45-117) Total Protein 7.2 gm/dl (6.4-8.2) Albumin 2.9 gm/dl (3.4-5.0) Globulin 4.3 gm/dl (2.5-4.0) Albumin/Globulin Ratio 0.7 (0.9-2) Lipase 46 U/L (73-393) Chemistry Specimen Hemolysis Assessment and Plan 62 yo male admitted on [id number] for acute cholecystitis. PMH: Asthma, paroxysmal tachycardia, celiac disease, HTN, GERD, DJD multiple joints PSH: Multiple orthopedic procedures, inguinal and umbilical hernia repairs Acute cholecystitis: - As noted in outpatient ultrasound prior to admit. S/p laparascopic cholecystectomy POD 1. Tolerating diet. Asthma: - No acute respiratory difficulties. 10Mar CXR with no acute process. On albuterol, dulera, singulair. Paroxysmal Tachycardia: - Says last such episode, which he can 'always' feel, was about a week ago. Denies any similar symptoms (including CP, SOB) since. On metoprolol 75 daily. Celiac disease: - Patient notes all meds are 'gluten-free'. Patient is allowed to take his own meds. GERD: - On home omeprazole. Hypertension: - On metoprolol, irbesartan. Right knee patellar fracture: - Not acute. Well-known to orthopedic surgery, see their related note. Observation for now, not an acute issue. Code status: Full code. Diet: adv as tolerated (gluten free) DVT prophy: Kunal 40 PT/OT: Deferred. Dispo: med/surg. Medicine is primary service. Home tomorrow. Continued [facility] stay due to: inadequate po fluid intake Discharge planning: home Resident Tracking Resident Involvement: Resident Care Provided Care Provided: Adult Hospital Medicine Reviewed: Pt Seen/Exam by Me Constitutional: denies: fever Respiratory: negative: short of breath Cardiovascular: denies chest pain General Appearance: no apparent distress Respiratory: lungs clear, no respiratory distress Cardiovascular: regular rate, rhythm Gastrointestinal: normal bowel sounds, soft, tenderness (incisional), other ( drain +) Neurologic/Psychiatric: alert, oriented x 3 Skin Characteristics: warm/dry Assessment/Plan Resident Physician Supervision Note: I independently interviewed and examined the patient and verified the streeter history and physical, reviewed labs and image studies, discussed the case with the resident Dr. Guevara and agree with the findings and care plan.
--- NOTE | 2017-10-06 09:54 | Surgery Progress Note ---
Surgery Progress Note Date of Service Oct 06, 2017. Subjective Post OP Day: 1 + ambulating, + pain controlled, + diet (appetite fair) Objective Vital Signs: Date Time Temp Pulse Resp B/P (MAP) Pulse Ox O2 Delivery O2 Flow Rate FiO2 10/06/17 07:52 36.5 12 122/74 (90) 92 Room Air 10/06/17 07:30 Room Air 10/06/17 02:53 36.6 69 16 102/62 (75) 93 Room Air 10/05/17 23:14 36.6 81 16 114/71 (85) 92 Room Air 10/05/17 23:10 Room Air 10/05/17 21:03 36.9 82 19 133/83 (100) 93 Room Air 10/05/17 20:02 36.8 83 19 143/79 (100) 97 Nasal Cannula 4.0 10/05/17 19:03 36.8 88 17 128/81 (97) 96 Nasal Cannula 4.0 10/05/17 18:30 37.3 83 19 140/81 (100) 94 Nasal Cannula 4.0 10/05/17 18:00 Nasal Cannula 2.0 10/05/17 18:00 Nasal Cannula 2.0 10/05/17 18:00 37.1 88 16 153/89 (110) 96 Nasal Cannula 2.0 10/05/17 17:50 86 16 144/79 95 Nasal Cannula 2 10/05/17 17:40 87 16 124/76 94 Nasal Cannula 3 10/05/17 17:30 88 16 125/75 93 Oxymask 10 10/05/17 17:20 36.4 76 16 130/69 92 Oxymask 10 10/05/17 15:00 Room Air Physical Exam: Ricki drainage (20 cc serosang) Abdomen: soft Laboratory Results: Results Past 24 Hours Test 10/06/17 06:06 Range/Units White Blood Count 16.54 4.8-10.8 K/uL Red Blood Count 3.72 4.7-6.1 M/uL Hemoglobin 11.8 14.0-18.0 g/dL Hematocrit 34.6 42-52 % Mean Corpuscular Volume 93.0 80-100 fL Mean Corpuscular Hemoglobin 31.7 25-34 pg Mean Corpuscular Hemoglobin Concent 34.1 32-36 g/dl Platelet Count 260 130-400 K/uL Mean Platelet Volume 9.5 7.4-10.4 fL RDW Standard Deviation 45.1 36.4-46.3 fL RDW Coefficient of Variation 13.2 11.5-14.5 % Neutrophils % (Manual) 94.0 % Lymphocytes % (Manual) 4.3 % Monocytes % (Manual) 1.7 % Neutrophils # (Manual) 15.55 1.4-6.5 K/uL Total Absolute Neutrophils 15.55 1.4-6.5 K/uL Lymphocytes # (Manual) 0.71 1.2-3.4 K/uL Total Absolute Lymphocytes 0.71 1.2-3.4 K/uL Monocytes # (Manual) 0.28 0.11-0.59 K/uL Red Blood Cell Morphology Unremarkable Sodium Level 137 136-145 mmol/L Potassium Level 4.8 3.5-5.1 mmol/L Chloride Level 105 98-107 mmol/L Carbon Dioxide Level 25 21-32 mmol/L Anion Gap 7.0 3-11 mmol/L Blood Urea Nitrogen 18 7-18 mg/dl Creatinine 1.31 0.60-1.40 mg/dl Est Creatinine Clear Calc Drug Dose 75.5 ml/min Estimated GFR () 66.7 Estimated GFR (Non- 57.5 BUN/Creatinine Ratio 13.7 10-20 Random Glucose 116 70-99 mg/dl Calcium Level 8.8 8.5-10.1 mg/dl Total Bilirubin 0.7 0.2-1 mg/dl Aspartate Amino Transf (AST/SGOT) 29 15-37 U/L Alanine Aminotransferase (ALT/SGPT) 30 12-78 U/L Alkaline Phosphatase 62 45-117 U/L Total Protein 7.2 6.4-8.2 gm/dl Albumin 2.9 3.4-5.0 gm/dl Globulin 4.3 2.5-4.0 gm/dl Albumin/Globulin Ratio 0.7 0.9-2 Lipase 46 73-393 U/L Chemistry Specimen Hemolysis Microbiology Results 10/05/17 Gram Stain - Final, Resulted 10/05/17 Wound Culture, Resulted Pending Assessment & Plan s/p lap sinai seen this morning by Dr. Cuadra WBC, 16,000 continue IV abx increase diet as antonio
[2017-10-06 12:18] VITALS: BP 138/78; PULSE 68; TEMP 36.5; O2SAT 95
[2017-10-06 12:41] VITALS: O2SAT 96
[2017-10-06 15:39] VITALS: BP 150/84; PULSE 71; TEMP 36.4; O2SAT 94
[2017-10-06] MEDS: MONTELUKAST 10 MG PO SCH (21:25)
[2017-10-06 23:01] VITALS: BP 123/72; PULSE 71; TEMP 36.6; O2SAT 94
[2017-10-07] MEDS: HEPARIN SOD 5000 UNIT/0.5 ML CARP SQ SCH ×2 (05:39→13:26)
[2017-10-07] MEDS: PIPERACILL/TAZOBAC IV 3.375 GM in DEXTROSE 5% 100ML IV SCH ×2 (05:39→13:27)
[2017-10-07 05:49] LABS: BASO % 0.2 %; BASO ABS # 0.02 K/uL (0-0.2); EOS % 1.2 %; EOS ABS # 0.16 K/uL (0-0.5); HEMATOCRIT 33.4 % (42-52); HEMOGLOBIN 11.2 g/dL (14.0-18.0); IG# 0.04 K/uL (0.00-0.02); LYMPH % 13.6 %; LYMPH ABS # 1.81 K/uL (1.2-3.4); MEAN CELL VOLUME 93.8 fL (80-100); MEAN CORPUSCULAR HEMOGLOBIN 31.5 pg (25-34); MEAN CORPUSCULAR HGB CONC 33.5 g/dl (32-36); MEAN PLATELET VOLUME 9.7 fL (7.4-10.4); MONO % 9.4 %; MONO ABS # 1.25 K/uL (0.11-0.59); NEUT % 75.3 %; NEUT ABS # 9.99 K/uL (1.4-6.5); PLATELET COUNT 230 K/uL (130-400); RED CELL DISTRIBUTION WIDTH CV 13.1 % (11.5-14.5); RED CELL DISTRIBUTION WIDTH SD 45.3 fL (36.4-46.3); WHITE BLOOD COUNT 13.27 K/uL (4.8-10.8)
[2017-10-07 06:19] LABS: ALBUMIN 2.6 gm/dl (3.4-5.0); CALCIUM 8.4 mg/dl (8.5-10.1); CREATININE 1.21 mg/dl (0.60-1.40)
[2017-10-07 06:35] LABS: TOTAL PROTEIN 6.5 gm/dl (6.4-8.2)
--- NOTE | 2017-10-07 06:56 | SURGERY PROGRESS NOTE ---
DATE: 10/07/2017 SUBJECTIVE: Terence is up and around, really feeling overall well. He is concerned that his white count was elevated. He had some singultus yesterday, but he is not nauseated. OBJECTIVE: VITAL SIGNS: His last vitals showed him a temperature of 36.6, pulse 71, respirations 18, blood pressure 123/72, and O2 sats 94 on room air. I&O, he had about 20 mL out of his Ricki drain which is serosanguineous, nonbilious. ABDOMEN: Benign. LABORATORY DATA: Laboratory ching, this morning his white count is down to 13.27. He still has a left shift, hemoglobin is 11.2. The chemistries yesterdays were pretty much no liver function abnormalities. BUN is 18, creatinine is 1.21 today. I checked with him and see whether or not he may be able to be discharged this afternoon. I would keep him on antibiotics, Augmentin 875mg bid for 5 days We will see him back in the office on Friday or to take out the drain. The micro so far on the cultures have been negative, which is not unexpected given the AVM and antibiotics. The path is pending. GUILLERMOD
[2017-10-07 07:07] VITALS: BP_SYST 105; BP_SYST 133; BP_DIAS 70; PULSE 62; TEMP 36.5; TEMP 37; O2SAT 95; O2SAT 97
[2017-10-07] MEDS ORDERED: TPRSR50 PO ×2 (07:28)
[2017-10-07] MEDS ORDERED: AMOX875T PO ×2 (07:28)
--- NOTE | 2017-10-07 07:41 | Discharge Instructions ---
Discharge Instructions Date of Service Oct 07, 2017. Admission Reason for Admission: Cholecystitis Discharge Discharge Diagnosis / Problem: cholecystits Discharge Goals Goal(s): Decrease discomfort, Increase independence, Learn about illness, Diagnostic testing, Therapeutic intervention, Prevent Disease Progression Activity Recommendations Activity Limitations: as noted below Lifting Limitations: gradually increase as tolerated Exercise/Sports Limitations: as tolerated May Resume Sexual Activity: when tolerated Shower/Bathe: no limitations, keep incision dry Driving or Machine Use: no limitations . Instructions / Follow-Up Instructions / Follow-Up Mr. Garnica, Víctor were admitted due to abdominal pain and were found to have an infection of your gall bladder. You under went gall bladder removal surgery. You have been a 5 day course of antibiotics. Please follow up with your surgeon by Tuesday, October 10, 2017. You are being prescribed Augmentin 875mg tablets twice a day for 5 days. Take tylenol for fever or pain, as prescribed. If you experience any worsening pain, fevers, increased drainage please call your PCP or Surgeon. If you have other concerns or chest pain/shortness of breath, please come back to the ER. Your metoprolol dose was adjusted to 75 mg daily. Thank you. Current Hospital Diet Patient's current hospital diet: Gluten Free Diet Discharge Diet Recommended Diet: Low Sodium Diet (2gm Na), Gluten Free Diet Procedures Procedures Performed: Laparoscopic Cholecystectomy with Cholangiogram Pending Studies Studies pending at discharge: no Medical Emergencies . Who to Call and When: Medical Emergencies: If at any time you feel your situation is an emergency, please call 911 immediately. . Non-Emergent Contact Non-Emergency issues call your: Primary Care Provider, Surgeon Call Non-Emergent contact if: you have a fever, temperature is above 100.5, your pain is not controlled, your pain is worsening, wound has increased drainage, wound has increased redness, wound has increased pain . . "Provider Documentation" section prepared by Michaela Cordova. .
--- NOTE | 2017-10-07 08:21 | Discharge Summary ---
Discharge Summary Date of Service Oct 07, 2017. Discharge Summary Admission Date: Oct 04, 2017 at 21:04 Discharge Date: Oct 07, 2017 Discharge Disposition: Home Principal Diagnosis: Acute cholecystitis Problems/Secondary Diagnoses: Asthma Paroxysmal Tachycardia Celiac disease GERD Hypertension Right knee patellar fracture Immunizations: Have You Had Influenza Vaccine: Yes Influenza Vaccine Date: May 03, 2008 History of Tetanus Vaccine?: Yes History of Pneumococcal: Yes History of Hepatitis B Vaccine: Yes Hepatitis Immunization Date: Nov 02, 2007 Procedures: CHEST ONE VIEW PORTABLE HISTORY: 62 years-old Male pre-op, recent pneumonia preoperative exam. History of pneumonia COMPARISON: Chest radiograph 09/17/2017, CTA chest 09/18/2017 TECHNIQUE: Portable AP view of the chest FINDINGS: Cardiomediastinal and hilar silhouettes are within normal limits. There is no pneumothorax, pleural effusion, focal airspace consolidation or overt pulmonary edema. The bones of the chest appear grossly intact. IMPRESSION: No acute process. INTRAOPERATIVE CHOLANGIOGRAM CLINICAL HISTORY: Cholecystectomy. Cholelithiasis. COMPARISON STUDY: Ultrasound dated 10/04/2017 FLUOROSCOPY TIME: 2.4 seconds. NUMBER OF FLUOROSCOPIC IMAGES: 1 FINDINGS: The common bile duct is of normal caliber. There are no filling defects. There is free flow into the duodenum. IMPRESSION: No retained calculi identified. Consultations: General Surgery Orthopedics Medication Reconciliation New Medications: Amoxicillin & Pot Clavulanate (Augmentin 875-125 mg) 1 Tab Tab 1 TAB PO BID for 5 Days, #10 TAB Metoprolol Succinate (Metoprolol Succinate ER) 50 Mg Tabcr 75 MG PO DAILY for 30 Days, #45 TAB Continued Medications: Albuterol Sulfate (Proair Respiclick) 108 Mcg/Act Aer 2 PUFFS INH Q4H PRN for Shortness of Breath Ascorbic Acid (Vitamin C) 500 Mg Tab 500 MG PO QAM Aspirin (Aspir-81) 81 Mg Tab 81 MG PO QAM Cholecalciferol (Vitamin D 1000 Unit) 1,000 Unit Cap 1000 INTER.UNIT PO DAILY, CAP Echinacea (Echinacea) Unknown Strength Cap 1 CAP PO QAM Irbesartan (Irbesartan) 150 Mg Tab 150 MG PO QAM Mometasone Furoate-Formoterol (Dulera 200/5 Mcg) 1 Aer Aer 2 PUFFS INH QAM Montelukast Sod (Montelukast Sodium) 10 Mg Tab 10 MG PO QPM Multivitamin (Multivitamin) Tab 1 TAB PO QAM Omeprazole (Prilosec) 20 Mg Capcr 20 MG PO BID Thiamine Hcl (Vitamin B-1) 100 Mg Tab 100 MG PO DAILY, TAB Zinc Sulfate (Zinc Sulfate) Unknown Strength Cap 1 CAP PO DAILY, CAP Discontinued Medications: Metoprolol Succinate (Metoprolol Succinate ER) 50 Mg Tabcr 50 MG PO QAM Discharge Exam Review of Systems: Constitutional: No fever, No chills Eyes: No worsening of vision ENT: No hearing loss Respiratory: No cough, No sputum, No wheezing, No shortness of breath, No dyspnea on exertion Cardiovascular: No chest pain Abdomen: + pain, No nausea, No vomiting, No diarrhea Genitourinary - Male: No hematuria, No dysuria, No urinary frequency Physical Exam: General Appearance: no apparent distress Eyes: PERRL, EOMI ENT: hearing grossly normal Neck: supple, no adenopathy Respiratory/Chest: lungs clear, normal breath sounds, no respiratory distress, no accessory muscle use Cardiovascular: regular rate, rhythm, no edema, no murmur, normal peripheral pulses Abdomen / GI: normal bowel sounds, non tender, soft, + pertinent finding ( RUQ drain, minimal pain, INcisions clean dry and intact) Extremities: no calf tenderness Neurologic/Psychiatric: no motor/sensory deficits, alert, normal mood/affect Hospital Course HPI (Per admitting doc) This is a pleasant 62 year old male with HTN, GERD, paroxysmal tachycardia, and Celiac Disease who presents with epigastric/RUQ pain. The pain started last evening and worsened significantly overnight and into the morning. He notes an 8/10 burning pain present at all times. The pain does not radiate to the back. He cannot time it with meals. Currently the pain is 5/10. Notes nausea without vomiting. He denies changes in bowel habits. No blood or black stool. No urinary complaints. He notes that he was here 2 weeks ago for a similar pain with some shortness of breaths and was discharged with a diagnosis of PNA. He was seen today in the [facility]. He sent for an ultrasound and had CBC. CBC did shows a WBC of 19. In addition, he had a thickened gallbladder to the upper limit of normal. He was sent to the ED for evaluation. Hospital Course Surgery was consulted and the patient underwent laparoscopic cholecystectomy. The patient did well post op and tolerated diet. He did have a drain that will be removed at his follow up. He was given a 5 day course of Augmentin. The patient did also initially present with tachycardia (he has a history of paroxysmal tachycardia). His home dose of metoprolol was adjusted to 75 mg. The patient also does have a history of right patellar fracture that was in the process of being revised by Orthopedics. They were consulted during his hospitalization and advised follow up outpatient for aspiration, synovasure and alpha defensins. All other chronic conditions and acute metabolic derangements were managed as deemed appropriate. Total Time Spent: Greater than 30 minutes This includes examination of the patient, discharge planning, medication reconciliation, and communication with other providers. Discharge Instructions Please refer to the electronic Patient Visit Report (Discharge Instructions) for additional information. Follow-Up General Surgery PCP Orthopedic Surgery Reviewed: Pt Seen/Exam by Me History no concerns Constitutional: denies: fever Respiratory: negative: short of breath Cardiovascular: denies chest pain General Appearance: no apparent distress Respiratory: lungs clear, no respiratory distress Cardiovascular: regular rate, rhythm Gastrointestinal: normal bowel sounds, non tender, soft, other (drain present) Neurologic/Psychiatric: alert, oriented x 3 Skin Characteristics: warm/dry Assessment/Plan Resident Physician Supervision Note: I independently interviewed and examined the patient and verified the streeter history and physical, reviewed labs and image studies, discussed the case with the resident Dr. Logan and agree with the findings and care plan. Time spent in discharge 35 min
[2017-10-07] MEDS ORDERED: OXYC-57 PO ×2 (08:38)
[2017-10-07] MEDS: MOMETASONE INH SCH (08:50)
[2017-10-07] MEDS: FORMOTEROL INH SCH (08:50)
[2017-10-07] MEDS: IRBESARTAN 150 MG PO SCH (08:51)
[2017-10-07] MEDS: EXT REL PO SCH (08:53)
[2017-10-07] MEDS: METOPROLOL SUCC 50 MG PO SCH (08:53)
[2017-10-07 10:19] VITALS: BP_SYST 133; BP_SYST 156; BP_DIAS 70; BP_DIAS 84; PULSE 62; PULSE 72; TEMP 36.5; TEMP 36.8; O2SAT 93; O2SAT 95
[2017-10-07 16:41] VITALS: BP 156/84; PULSE 72; TEMP 36.8; O2SAT 93
[2017-10-07] MEDS: OXYCODONE/ACETAMINOPHEN 5-325 TAB PO PRN (17:26)
== END 2017-10-07 18:55 | disposition home or self-care (01) | DRG 419 ==
LOC: C.EDB 17:55 → C.MSN 21:04 → ENRESERV 21:14
PROVIDERS: ADMIT Student in an Organized Health Care Education/Training Program; ATTEND Family Medicine
PROC: 0FT44ZZ Resection of Gallbladder, Percutaneous Endoscopic Approach (ICD-10-PCS; principal; 2017-10-05 13:00)
PROC: BF13YZZ Fluoroscopy of Gallbladder and Bile Ducts using Other Contrast (ICD-10-PCS; principal; 2017-10-05 13:00)
DX: K80.00 Calculus of gallbladder with acute cholecystitis without obstruction (principal); I47.9 Paroxysmal tachycardia, unspecified; K21.9 Gastro-esophageal reflux disease without esophagitis; J45.909 Unspecified asthma, uncomplicated; K90.0 Celiac disease; I10 Essential (primary) hypertension; Z96.659 Presence of unspecified artificial knee joint; Z88.2 Allergy status to sulfonamides; Z88.8 Allergy status to other drugs, medicaments and biological substances; Z87.891 Personal history of nicotine dependence

== ENCOUNTER → 2017-10-04 | Outpatient (CLI) | payer BC ==
[~2017-10-04] MED LIST changes: +ALBINS/ INH; +AMOX875T PO; +CHOL100027 PO; +ECHI125T PO; +ECHI1CAP PO; +IRBE1TAB48 PO; -LISI-461 PO; +OXYC-57 PO; +SNG10 PO; +SULI200T4 PO; +THIA100T11 PO; +TPRSR/50 PO; +TPRSR50 PO; +ZINC1CAP PO
--- NOTE | 2017-10-04 11:25 | DIAGNOSTIC IMAGING REPORT ---
ABDOMEN LIMITED (US) HISTORY: 62 years-old Male *STAT-- EPIGASTRIC PAIN, RUQ PAIN acute right upper quadrant abdominal pain COMPARISON: None available TECHNIQUE: Multiple real-time sonographic images of the abdominal right upper quadrant were obtained assessing grayscale appearance and color flow FINDINGS: The imaged pancreas is unremarkable with the majority of the pancreas obscured by bowel gas. The imaged liver appears unremarkable without intrahepatic biliary ductal dilation or focal hepatic mass lesions identified. Common bile duct is mildly dilated at 7 mm without obstructing stone or lesion identified. There are multiple stones within the gallbladder lumen. Gallbladder wall measures in the upper limits of normal at 3 mm. No pericholecystic fluid. Sonographic Vega sign reported as positive. The imaged right kidney is unremarkable without hydronephrosis IMPRESSION: 1. Cholelithiasis with gallbladder wall measuring in the upper limits of normal is noted in addition to a positive sonographic Vega's sign. No associated pericholecystic fluid or significant gallbladder distention. Correlate clinically to exclude developing acute cholecystitis. 2. Mild dilation of the common bile duct at 7 mm without obstructing stone or lesion identified. The above report was generated using voice recognition software. It may contain grammatical, syntax or spelling errors. Electronically signed by: Bruce Jorge M.D. 10/04/2017 11:23 AM Dictated Date/Time: 10/04/2017 11:17 AM
[2017-10-04 11:54] LABS: BASO % 0.1 %; BASO ABS # 0.02 K/uL (0-0.2); HEMATOCRIT 38.3 % (42-52); HEMOGLOBIN 13.5 g/dL (14.0-18.0); IG# 0.06 K/uL (0.00-0.02); LYMPH % 7.1 %; LYMPH ABS # 1.39 K/uL (1.2-3.4); MEAN CORPUSCULAR HEMOGLOBIN 32.1 pg (25-34); MONO % 6.2 %; NEUT % 85.3 %; NEUT ABS # 16.61 K/uL (1.4-6.5); PLATELET COUNT 254 K/uL (130-400); RED CELL DISTRIBUTION WIDTH SD 43.1 fL (36.4-46.3); WHITE BLOOD COUNT 19.48 K/uL (4.8-10.8)
[2017-10-04 12:08] LABS: MEAN CORPUSCULAR HGB CONC 35.2 g/dl (32-36)
== END | disposition home or self-care (01) ==
LOC: C.ULTR 10:38
PROVIDERS: ATTEND Physician Assistant
DX: R10.13 Epigastric pain (principal); R10.11 Right upper quadrant pain; K80.20 Calculus of gallbladder without cholecystitis without obstruction

== ENCOUNTER → 2017-10-20 | Outpatient (CLI) | payer BC ==
[~2017-10-20] MED LIST changes: -ALBINS/ INH; +CHOL100027 PO; -CHOL100041 PO; -ECHI125T PO; +ECHI1CAP PO; -METO-217 PO; -MONT1TAB3 PO; +OXYC-57 PO; +SNG10 PO; -SULI200T4 PO; +TPRSR50 PO
[2017-10-20 09:34] LABS: BASO % 0.2 %; BASO ABS # 0.02 K/uL (0-0.2); EOS % 5.9 %; EOS ABS # 0.48 K/uL (0-0.5); HEMATOCRIT 36.8 % (42-52); HEMOGLOBIN 12.3 g/dL (14.0-18.0); IG# 0.02 K/uL (0.00-0.02); LYMPH % 23.3 %; LYMPH ABS # 1.89 K/uL (1.2-3.4); MEAN CELL VOLUME 92.9 fL (80-100); MEAN CORPUSCULAR HEMOGLOBIN 31.1 pg (25-34); MEAN CORPUSCULAR HGB CONC 33.4 g/dl (32-36); MEAN PLATELET VOLUME 9.4 fL (7.4-10.4); MONO % 8.8 %; MONO ABS # 0.71 K/uL (0.11-0.59); NEUT % 61.6 %; NEUT ABS # 4.98 K/uL (1.4-6.5); PLATELET COUNT 308 K/uL (130-400); RED CELL DISTRIBUTION WIDTH SD 44.4 fL (36.4-46.3)
== END | disposition home or self-care (01) ==
LOC: C.LAB1850 07:50
PROVIDERS: ATTEND Surgery
DX: K80.10 Calculus of gallbladder with chronic cholecystitis without obstruction (principal)

== ENCOUNTER → 2017-11-26 | Outpatient (CLI) | payer BC ==
[~2017-11-26] MED LIST changes: +FLUT0.15 INTNAS; +METO-217 PO; +MOME100A INH; -MOME200A INH; +NABU500T PO; -OXYC-57 PO; -TPRSR50 PO
[2017-11-26 09:33] LABS: HEMATOCRIT 38.8 % (42-52); HEMOGLOBIN 13.1 g/dL (14.0-18.0)
== END | disposition home or self-care (01) ==
LOC: C.LAB1850 07:46
PROVIDERS: ATTEND Physical Medicine & Rehabilitation Sports Medicine
DX: D64.9 Anemia, unspecified (principal)

== ENCOUNTER 2017-12-03 08:28 | Inpatient (IN) | payer BC ==
[2017-11-17 10:44] VITALS: BMI 35.0
[2017-11-17 11:34] LABS: BASO % 0.5 %; BASO ABS # 0.04 K/uL (0-0.2); EOS % 6.7 %; HEMOGLOBIN 13.1 g/dL (14.0-18.0); IG# 0.02 K/uL (0.00-0.02); LYMPH % 24.5 %; LYMPH ABS # 1.83 K/uL (1.2-3.4); MEAN CELL VOLUME 91.1 fL (80-100); MEAN CORPUSCULAR HEMOGLOBIN 31.4 pg (25-34); MEAN CORPUSCULAR HGB CONC 34.5 g/dl (32-36); MEAN PLATELET VOLUME 9.5 fL (7.4-10.4); MONO % 9.7 %; MONO ABS # 0.72 K/uL (0.11-0.59); NEUT % 58.3 %; NEUT ABS # 4.35 K/uL (1.4-6.5); PLATELET COUNT 245 K/uL (130-400); RED CELL DISTRIBUTION WIDTH CV 13.1 % (11.5-14.5); RED CELL DISTRIBUTION WIDTH SD 43.9 fL (36.4-46.3); WHITE BLOOD COUNT 7.46 K/uL (4.8-10.8)
[2017-11-17 11:45] LABS: PTT PATIENT 26.7 SECONDS (21.0-31.0)
--- NOTE | 2017-11-17 12:17 | DIAGNOSTIC IMAGING REPORT ---
CHEST 2 VIEWS ROUTINE CLINICAL HISTORY: Preoperative chest. COMPARISON STUDY: 10/04/2017 FINDINGS: The heart is mildly enlarged. There is aortic tortuosity. There is no failure. There is no focal pulmonary consolidation. There are no pleural effusions.[ There is a mild scoliosis. IMPRESSION: Mild cardiomegaly. No acute findings. Electronically signed by: Gino Townsend M.D. 11/17/2017 12:16 PM Dictated Date/Time: 11/17/2017 12:15 PM
[2017-11-17 13:35] LABS: CALCIUM 9.4 mg/dl (8.5-10.1); CREATININE 1.11 mg/dl (0.60-1.40); POTASSIUM 4.6 mmol/L (3.5-5.1)
--- NOTE | 2017-11-24 16:22 | HISTORY & PHYSICAL EXAMINATION ---
DATE OF ADMISSION: 12/03/2017 CHIEF COMPLAINT: Right knee pain. HISTORY OF PRESENT ILLNESS: This 62-year-old white male presents to the office with complaints of right knee pain that has been ongoing for over a year. The patient previously had right knee arthritis. He underwent total knee arthroplasty on 12/16/2013. He initially did well with that surgery. In 12/2014, he fell and struck his anterior knee. He had subsequent pain with ascending stairs or prolonged standing. He had an excision of his patellar button on 10/11/2015. Pain has persisted. He notes some minor loss of motion. He has daily pain. Radiographic imaging suggests possible loosening of the femoral implant. He elects to proceed with surgical intervention in hopes of alleviating his knee pain. He is currently ambulating with a cane. Pain is affecting his ADLs. He has a left total knee arthroplasty performed in 10/2013 and he continues to do well with that. He is scheduled to undergo a right knee revision patellar resurfacing, and possible revision of his femoral total knee implant on 12/03/2017. PAST MEDICAL HISTORY: Significant for heart palpitations, asthma, sleep apnea, osteoarthritis, rheumatoid arthritis, GERD, hiatal hernia, celiac disease, obesity, history of pneumonia, and hypertension. PREVIOUS SURGERIES: Left wrist fusion, left and right shoulder rotator cuff repairs, left knee ACL reconstruction, right knee arthroscopy x2, umbilical hernia repair, inguinal hernia repair x4, left knee total knee arthroplasty 11/11/2013, right knee total knee arthroplasty 12/16/2013, right knee patellar button excision 10/11/2015. ALLERGIES: KNOWN ALLERGY TO THEOPHYLLINE AND SULFA DRUGS. KNOWN GLUTEN INTOLERANCE. ALLERGY TO SIMVASTATIN. SEVERE NAUSEA WITH PERCOCET 7.5 MG. FAMILY HISTORY: Significant for Alzheimer disease, asthma, heart disease, and diabetes. Father is . Mother resides at [facility]. 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 . No tobacco use, no ETOH use. CURRENT MEDICATIONS: Amoxicillin 500 mg prior to dental visits, aspirin 81 mg daily, Dulera 100 mcg/5 mcg 1 puff b.i.d., Flonase 50 mcg 1 spray in each nostril b.i.d., irbesartan 150 mg p.o. daily, metoprolol 50 mg 1-1/2 tablets p.o. daily, multivitamin daily, nabumetone 750 mg p.o. b.i.d., omeprazole 20 mg p.o. b.i.d., ProAir inhaler 2 puffs q.i.d. p.r.n., Singulair 10 mg p.o. q.p.m., vitamin C and D daily, Shingrix 0.5 mL IM every 2-6 months. REVIEW OF SYSTEMS: Significant for above-stated conditions, otherwise unremarkable. PHYSICAL EXAMINATION: GENERAL: Well-developed, well-nourished middle aged white male, in no acute distress. Sitting on a bed. Alert and oriented. SKIN: Warm and dry with good turgor. No rashes or lesions. No ecchymosis or erythema. Well-healed surgical scars present on both knees. He has a right knee intraarticular effusion. HEENT: Normocephalic, atraumatic. Eyes PERRLA, EOMI. Nares patent bilaterally without turbinate enlargement. Oropharynx without erythema or exudate. No lesions noted. Uvula midline. Oral mucosa moist. Fair dentition. Dental caps are noted. HEART: RRR. No MGR. LUNGS: Clear to auscultation bilaterally. No crackles, rhonchi or wheezing. Good air movement. ABDOMEN: Obese. Bowel sounds present x4, soft, nontender. No organomegaly. No masses. MUSCULOSKELETAL: Right knee evaluation reveals the above stated effusion. He lacks a few degrees of terminal extension. Flexion to only around 90 degrees secondary to pain and swelling. Stable collateral ligaments. He has focal discomfort with palpation around the knee, both medially and laterally as well as anterior. No palpable defect in the patellar tendon or quadriceps tendon. Ambulatory with an antalgic gait using his cane. NEUROLOGIC: Gross sensation is intact across the right lower extremity by soft touch. Peripheral pulses are 2+. DATA: Radiographic imaging previously obtained shows absence of a patellar button. He does have some radiolucency around the femoral implant suggesting possible loosening. IMPRESSION: Right knee patellar arthritis with possible femoral implant loosening. PLAN: Postoperative prescriptions for Percocet and Coumadin will be provided at discharge from the hospital. Anticipate discharge to home with home health services versus outpatient PT. He already had a synovasure aspiration on 10/27/2017 that was negative. Alpha-defensin was negative. He already has crutches, walker, and a cane. MTDD
[~2017-12-03] VITALS: Ht 182.9 cm; Wt 117.6 kg
[2017-12-03] VITALS (9 sets, daily range): BP systolic 102–142; BP diastolic 54–88; PULSE 80–100; TEMP 36.4–37.1; O2SAT 93–98; Ht 182.9 cm; Wt 117.6 kg
[~2017-12-03 08:28] MED LIST changes: +CEFAZOLIN 2000MG IV PUSH 15 ML IV SCH; +LACTATED RINGER'S 1000ML 1,000 ML IV SCH; +LACTATED RINGER'S 1000ML IV SCH; +LACTATED RINGER'S 500 ML IV SCH; +ROPIVACAINE 5MG/ML 30 ML 150 MG, BUPIVACAINE 0.5% MPF INJ 30 ML, EpINEphrine HCL INJ 0.... INFIL SCH; +TRANEXAMIC ACID INJ 1,000 MG x 1 Bag Preop IV SCH
[2017-12-03] MEDS ORDERED: ROPIVACAINE 0.5% 5 MG/ML 30 ML VIAL ONE (08:29)
[2017-12-03] MEDS ORDERED: BUPIVACAINE 0.5 % 5 MG/1 ML PF 10ML VIAL ONE (08:29)
--- NOTE | 2017-12-03 08:39 | History & Physical Bridge Note ---
H&P Re-Evaluation Bridge Note: I have examined the patient, reviewed the History & Physical and in the interval since the performance of the History & Physical I have noted the following changes of clinical significance: consent obtained.No changes noted
[2017-12-03] MEDS ORDERED: PROPOFOL IV EMULSION 10 MG/ML 20 ML VIAL ONE ×4 (09:15→12:41)
[2017-12-03] MEDS ORDERED: LIDOCAINE HCL 2% 2 ML VIAL (20MG/ML) ONE (09:15)
[2017-12-03] MEDS ORDERED: MIDAZOLAM HCL 1 MG/ML 2ML VIAL ONE ×2 (09:15→11:46)
[2017-12-03] MEDS ORDERED: FENTANYL CITRATE INJ 50 MCG/1 ML 2 ML VIAL ONE (09:16)
[2017-12-03] MEDS ORDERED: DEXAMETHASONE SOD INJ 4 MG/ML VIAL ONE (09:49)
[2017-12-03] MEDS ORDERED: ONDANSETRON INJ 2 MG/ML 2 ML VIAL ONE ×2 (09:49→10:47)
[2017-12-03] MEDS ORDERED: ORTHO JOINT ANESTHETIC ONE (10:36)
[2017-12-03] MEDS ORDERED: POVIDONE-IODINE OP SOLN 30 ML BTL ONE (10:37)
--- NOTE | 2017-12-03 13:15 | [facility] Post Operative Brief Note ---
Immediate Operative Summary Operative Date December 03, 2017. Pre-Operative Diagnosis Right Knee Patellar Arthritis with Possible Femoral Implant Loosening Post-Operative Diagnosis Right Knee Patellar Arthritis with Femoral Implant Loosening Procedure(s) Performed Right Knee: Patellar Resurfacing and Revision of Distal Femoral Implants Surgeon Dr. Boles Tamping Machine Operator Surgeon(s) BORWN Avalos Estimated Blood Loss 200 ml Findings Consistent with Post-Op Diagnosis Specimens Culture #1--Right Knee Synovium--for routine culture and sensitivity, gram stain, aerobes and anaerobes--sent to lab at 1143 A. Removed Hardware Right Knee (Femoral Explants x2) Drains None Anesthesia Type MAC Spinal Regional Complication(s) none Disposition Accompanied Pt To Recover: no Overlapping Procedure I was immediately available: during the entire case
[2017-12-03] MEDS ORDERED: ALUMINUM/MAGNESIUM/SIMETH (MAALOX MAX) 30 ML UDC PO PRN (13:30)
[2017-12-03] MEDS ORDERED: ACETAMINOPHEN 325 MG TAB PO PRN (13:30)
[2017-12-03] MEDS ORDERED: MAGNESIUM HYDROXIDE SUSP 30 ML UDC PO PRN (13:30)
[2017-12-03] MEDS ORDERED: DiphenhydrAMINE HCL 50 MG/ML VIAL IV PRN (13:30)
[2017-12-03] MEDS ORDERED: ALBUTEROL HFA 8 GM INHALER INH PRN (13:30)
[2017-12-03] MEDS ORDERED: TAMSULOSIN HCL 0.4 MG CAP PO PRN (13:30)
[2017-12-03] MEDS ORDERED: FLUTICASONE PROPIONATE NA SPR 16 GM BTL NAE PRN (13:30)
[2017-12-03] MEDS ORDERED: BISACODYL 10 MG SUPP PR PRN (13:30)
[2017-12-03] MEDS ORDERED: METOCLOPRAMIDE HCL INJ 5 MG/ML 2 ML VIAL IV PRN (13:30)
[2017-12-03] MEDS ORDERED: MoRPHine SULFATE 4 MG/ML 1 ML CARP\\VIAL IV PRN (13:30)
[2017-12-03] MEDS ORDERED: ACETAMINOPHEN IV 100 ML IV PRN (13:30)
[2017-12-03] MEDS ORDERED: VANCOMYCIN CONSULT ACTIVE PRN (13:45)
[2017-12-03] MEDS ORDERED: VANCOMYCIN IV 1,750 MG in SODIUM CHLORIDE 0.9% 500ML 500 ML IV ONE (14:15)
--- NOTE | 2017-12-03 14:20 | DIAGNOSTIC IMAGING REPORT ---
RIGHT KNEE 2 VIEWS History: Right total knee arthroplasty. Degenerative arthritis. Postop. FINDINGS: The patient is status post replacement of the femoral prosthesis of a right total knee arthroplasty with a long stemmed component. There is also been interval placement of a patellar component. The tibial component remains unchanged. Mild periprosthetic lucency at the proximal aspect of the tibial component at the bone cement interface. This could represent mild loosening. This measures up to 2 mm. The hardware appears intact. No fracture or dislocation. Skin elvia are in place. IMPRESSION: 1. Status replacement of the femoral and patellar prostheses of a right total knee arthroplasty. The hardware appears intact. 2. Mild periprosthetic lucency at the bone cement interface of the residual tibial component. This may represent mild loosening. Electronically signed by: Candelario Angel M.D. 12/03/2017 2:19 PM Dictated Date/Time: 12/03/2017 2:12 PM
--- NOTE | 2017-12-03 14:27 | OPERATIVE REPORT ---
DATE OF OPERATION: 12/03/2017 SURGEON: Dr. Boles. WIND TURBINE MACHINIST: Volodymyr Conway PA-C. No resident or fellow available. PREOPERATIVE DIAGNOSES: Status post total knee replacement complicated by patellar fracture with patellar button loosening requiring open reduction and internal fixation of his patella, now has patellofemoral chronic pain and possible femoral implant loosening post-traumatically induced. POSTOPERATIVE DIAGNOSES: Posttraumatically induced femoral implant loosening and patellofemoral pain based on no resurfacing of his patella, status post fracture which is healed. OPERATION PERFORMED: Revision of femoral implant, right knee with entrapped seal sleeve and stem and NexGen Complete patellar solution augmentation patella medium. PERIOPERATIVE SITUATION: Medically cleared male with intractable knee pain who has been worked up including aspiration and culture Gram stain preoperatively, all revealing nothing including alpha defensin. His x-rays reveal possible loosening of his femur and has significant crepitation with range of motion of his knee based on the fact that his patella fracture which is healed and has no resurfacing. He wishes to proceed with surgical treatment. Discussion in detail with him regarding distal femoral vision and patellar resurfacing were made. DESCRIPTION OF PROCEDURE: Patient was identified, site verified, consent verified, 2 grams of Ancef confirmed as being given. The right lower extremity was prepped and draped in usual routine fashion. The tourniquet inflated to 300 mmHg after exsanguination of limb with a rubber bandage in 2 segments, 1 for 65 minutes and another one for 21 minutes. Midline exposure was utilized. Parapatellar arthrotomy performed. Fluid evacuated. Synovectomy completed, cement debris noted. This was all debrided. Looking at the patella, it was all debrided. Patellar fracture was healed. The femur looked like it was knocked loose. This was then augmented with flexible osteotomes and the implant removed without difficulty. There was no major bone loss. The fibrous membrane and stuff were removed and was sent for Gram stain and culture, although previously the specimens were all normal, so we proceeded immediately with revision. Distal femur was then entered. It was reamed up to an 18 then the sleeve placed for the distal femoral cutting block and just had a small adaptation cutting block. The size 4 condylar piece was then attached, the cutting guide and then the anterior and posterior condylar and chamfer cuts made. Flexion gaps and everything were good. The extension gaps were good. The box cut was then revised slightly. The capsule sleeve stem and distal femur were then placed. It required 8 mm augments posteriorly. The trial implant fit well and everything tracked well. The patella was then cleaned up with a power bur with the reamer and then a medium implanted and sewn into place with 2-0 FiberWire with excellent fixation. Once this was all in, the wound was irrigated. The tourniquet was deflated during this part of the procedure, it was then reinflated and then everything irrigated and the femoral stem cemented into position as well as the patella button. After 12 minutes, the tourniquet deflated. Minor bleeding points controlled with electrocautery. The wound irrigated with Betadine Pulsavac. After 14 minutes, knee was then ranged. It was excellent. There was good tracking. The trial spacer was then removed. The permanent spacer seated. The wound was then irrigated one final time and closed with 2-0 Vicryl and stainless steel clips. ESTIMATED BLOOD LOSS: 200 mL. CRYSTALLOID: 2000 mL. DVT prophylaxis per protocol. SUMMARY OF IMPLANTS: Size 4 right femur posterior cruciate stabilized +2 bolt, 5 degree valgus adaptor, 31 degree femoral sleeve, 8 mm posterior medial augment, 8 mm posterior lateral augment, stem 75 x 16 insert, 4 mm thick x10 insert and then the NexGen patella was a medium thickness 19.5 with metal and poly. I attest to the content of the Intraoperative Record and any orders documented therein. Any exception s are noted below.
--- NOTE | 2017-12-03 15:08 | Anesthesiology Progress Note ---
Anesthesia Post Op Note Date & Time December 03, 2017 at 15:07 Vital Signs Pain Intensity: 0 Vital Signs Past 12 Hours Date Time Temp Pulse Resp B/P (MAP) Pulse Ox O2 Delivery O2 Flow Rate FiO2 12/03/17 14:57 97 Nasal Cannula 2.0 12/03/17 14:53 36.6 89 16 102/54 (70) 98 Nasal Cannula 2.0 12/03/17 14:30 82 18 132/81 97 Nasal Cannula 2 12/03/17 14:15 36.1 81 17 127/76 98 Nasal Cannula 2 12/03/17 14:05 85 14 120/77 97 Nasal Cannula 2 12/03/17 13:55 89 19 126/79 97 Nasal Cannula 2 12/03/17 13:45 89 19 138/76 96 Nasal Cannula 2 12/03/17 13:35 87 19 127/80 98 Oxymask 5 12/03/17 13:27 36.2 88 20 115/72 98 Oxymask 5 12/03/17 09:09 37.1 80 20 141/82 Room Air Notes Mental Status: alert / awake / arousable, participated in evaluation Pt Amnestic to Procedure: Yes Nausea / Vomiting: adequately controlled Pain: adequately controlled Airway Patency, RR, SpO2: stable & adequate BP & HR: stable & adequate Hydration State: stable & adequate Anesthetic Complications: no major complications apparent
[2017-12-03] MEDS ORDERED: MoRPHine SULFATE 2 MG/ML CARP ONE (15:23)
--- NOTE | 2017-12-03 15:32 | ORTHOPEDICS PROGRESS NOTE ---
DATE: 12/03/2017 SUBJECTIVE: Status post revision of distal femoral total knee implant of right lower extremity with reconstruction of the extensor mechanism of patellofemoral joint. The patient tolerated the procedure well. He is awake and alert. Denies chest pain, shortness of breath, fever, chills, nausea, vomiting, or headache. OBJECTIVE: Wound dressing clean, dry and intact. Vital signs are stable. He is afebrile. RADIOLOGICAL DATA: Postop x-rays look excellent. No issues with the tibial implant on clinical examination during the procedure. It was not loose. Radiology is calling some radiolucent lines, which have been stable. It is clear that the femur was loose and it is clear the extensor mechanism need to be reconstructed. The tibia did not need to be reconstructed or revised. ASSESSMENT AND PLAN: Overall, doing well. Continue with postop care pathway. Weightbearing to tolerance. If He tolerates dinner will Hep-Lock IV. MTDD
[2017-12-03] MEDS ORDERED: D5W AND 1/2NSS + 20MEQ KCL 1,000 ML IV SCH (16:00)
[2017-12-03] MEDS: DULERA: ORDER AWAITING ACTION SCH ×2 (16:00→22:56)
[2017-12-03] MEDS ORDERED: KETOROLAC TROMETHAMINE 30 MG/ML VIAL IV. SCH (16:00)
[2017-12-03] MEDS ORDERED: WARF2TAB PO (16:39)
[2017-12-03] MEDS: FERROUS GLUCONATE 324 MG TAB PO SCH (17:42)
[2017-12-03] MEDS: OXYCODONE HCL IR 5 MG TAB (IMMEDIATE RELEASE) PO PRN ×2 (17:43→23:40)
[2017-12-03] MEDS ORDERED: WARFARIN SOD 5 MG TAB PO ONE (17:45)
[2017-12-03] MEDS ORDERED: TRANEXAMIC ACID INJ 1,000 MG in SODIUM CHLORIDE 0.9% 100ML 100 ML IV ONE (19:00)
[2017-12-03] MEDS: CEFAZOLIN IV 2,000 MG in SYRINGE 0 ML IV SCH (19:53)
[2017-12-03] MEDS: ONDANSETRON INJ 2 MG/ML 2 ML VIAL IV PRN (20:38)
[2017-12-03] MEDS ORDERED: MONTELUKAST SOD 10 MG TAB PO SCH ×2 (21:00)
[2017-12-03] MEDS: DOCUSATE SODIUM 100 MG CAP PO SCH (22:14)
[2017-12-03] MEDS ORDERED: NURSING VERBAL MED ORDER ONE (22:45)
[2017-12-04] MEDS: CEFAZOLIN IV 2,000 MG in SYRINGE 0 ML IV SCH (02:55)
[2017-12-04 03:25] VITALS: BP 102/72; PULSE 94; TEMP 37.1; O2SAT 96
[2017-12-04] MEDS: ONDANSETRON INJ 2 MG/ML 2 ML VIAL IV PRN (03:34)
[2017-12-04] MEDS: OXYCODONE HCL IR 5 MG TAB (IMMEDIATE RELEASE) PO PRN ×3 (03:34→13:42)
[2017-12-04 06:55] LABS: HEMATOCRIT 33.1 % (42-52); HEMOGLOBIN 11.3 g/dL (14.0-18.0); MEAN CELL VOLUME 91.2 fL (80-100); MEAN CORPUSCULAR HEMOGLOBIN 31.1 pg (25-34); MEAN CORPUSCULAR HGB CONC 34.1 g/dl (32-36); MEAN PLATELET VOLUME 9.2 fL (7.4-10.4); PLATELET COUNT 223 K/uL (130-400); RED CELL DISTRIBUTION WIDTH SD 43.9 fL (36.4-46.3); WHITE BLOOD COUNT 15.19 K/uL (4.8-10.8)
[2017-12-04 06:59] VITALS: BP 149/76; PULSE 87; TEMP 36.9; O2SAT 93
--- NOTE | 2017-12-04 07:02 | PROGRESS NOTE ---
DATE: 12/04/2017 SUBJECTIVE: He did reasonably well overnight. Was sleeping when I came in the room. Denies any chest pain, shortness of breath, fever, chills, nausea, vomiting, or headache. OBJECTIVE: VITAL SIGNS: Stable, he is afebrile. SKIN: Wound dressing clean, dry, and intact. Neurovascular check is normal. \XTREMITIES: Calves nontender. LABORATORY DATA: AM labs are pending. ASSESSMENT: Doing well. Continue with postop care pathway. Use knee immobilizer for a week due to his history of falling and breaking his kneecap. Also, the type of surgery that was performed. At this point, conditionally discharge this afternoon if he does well with PT/OT. Social service assessment needs. Also, discharge on Coumadin 4 mg if INR is less than 1.4 and 2 mg if greater than 1.4. Also, discharge on azithromycin 250 mg p.o. daily for 7 days.
--- NOTE | 2017-12-04 07:16 | DISCHARGE SUMMARY ---
Conditional if he does well with PT/OT. HISTORY OF PRESENT ILLNESS: The patient was admitted for revision of his patella surfacing and his distal femur implant for his total knee replacement. The patient fell and sustained a traumatic injury. He fractured his patella and ruptured his extensor mechanism over time, developed a loose distal femur, and this required to be revised. He has preoperative assessment including alpha-defensin, and culture was negative. Hospital course has been uneventful. He has some pain. We will try to discharge this afternoon if he does well with PT/OT. PAST MEDICAL HISTORY: Remarkable for heart palpitations, asthma, sleep apnea, osteoarthritis, rheumatoid arthritis, GERD, hiatal hernia, celiac disease, obesity, history of pneumonia, and hypertension. PAST SURGICAL HISTORY: Include left wrist fusion, left and right shoulder rotator cuff surgeries, ACL surgery in the left knee, multiple knee arthroscopies, umbilical herniorrhaphy x4, total knee arthroplasty on 11/01/2013, right 12/16/2013. Patellar button excision for fracture and repair of extensor mechanism, October 11, 2015. ALLERGIES: MULTIPLE ALLERGIES KNOWN TO THEOPHYLLINE, SULFA DRUGS, GLUTEN INTOLERANCE, SIMVASTATIN, NAUSEA WITH PERCOCET. FAMILY HISTORY: Remarkable for Alzheimer's disease, asthma, heart disease, diabetes. Father is . Mother resides at [facility]. 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 He is . He has no tobacco or alcohol use. MEDICATIONS: Preadmission medications include amoxicillin prior to dental visits, aspirin 81 mg, Dulera, Flonase, metoprolol, multivitamins, nabumetone, omeprazole, ProAir inhaler, Singulair, vitamins, Shingrax. We will discharge on azithromycin 250 mg daily for 7 days and p.r.n. Zofran and his p.r.n. pain medication. REVIEW OF SYSTEMS: Noncontributory. Hospital course has been uneventful. If he does well with PT/OT, we will discharge today. MEDICATIONS: In addition to his preadmission medications for Coumadin, for azithromycin, Zofran and p.r.n. pain medication.
[2017-12-04 07:24] LABS: CALCIUM 8.3 mg/dl (8.5-10.1); CREATININE 1.09 mg/dl (0.60-1.40); POTASSIUM 3.7 mmol/L (3.5-5.1)
[2017-12-04] MEDS ORDERED: DEXAMETHASONE INJ 10 MG in SYRINGE 0 ML IV ONE (07:30)
[2017-12-04] MEDS: DULERA: ORDER AWAITING ACTION SCH (07:55)
[2017-12-04] MEDS: FERROUS GLUCONATE 324 MG TAB PO SCH ×2 (08:59→12:54)
[2017-12-04] MEDS ORDERED: METOPROLOL SUCC 25MG EXT REL TAB PO SCH (09:00)
[2017-12-04] MEDS ORDERED: METOPROLOL SUCC 50MG EXT REL TAB PO SCH (09:00)
[2017-12-04] MEDS ORDERED: MULTIVITAMIN TAB PO SCH (09:00)
[2017-12-04] MEDS ORDERED: PANTOprazole SOD 40 MG TAB PO SCH (09:00)
[2017-12-04] MEDS ORDERED: ASPIRIN 81 MG ECTAB PO SCH (09:00)
[2017-12-04] MEDS ORDERED: IRBESARTAN 150 MG TAB PO SCH ×2 (09:00)
[2017-12-04] MEDS: DOCUSATE SODIUM 100 MG CAP PO SCH (09:02)
[2017-12-04] MEDS ORDERED: OXYC-57 PO (09:16)
[2017-12-04] MEDS ORDERED: ONDA4TAB65 PO (09:16)
--- NOTE | 2017-12-04 09:18 | Discharge Instructions ---
Discharge Instructions Date of Service December 03, 2017. Admission Reason for Admission: Right Knee Patella Arthritis, Possible Femoral Loo Discharge Discharge Diagnosis / Problem: Right knee s/p patellar resurfacing, Revsion of femoral implant Discharge Goals Goal(s): Decrease discomfort, Improve function, Increase independence, Improve disease control Activity Recommendations Activity Limitations: as noted below Lifting Limitations: gradually increase as tolerated Exercise/Sports Limitations: until after follow-up appointment Shower/Bathe: keep incision dry Driving or Machine Use: No driving until cleared by Dr. Boles Weightbearing Status: Right weightbearing (as tolerated) Must use knee immobilizer when ambulating, for 1 week Maximum flexion 90 degrees . Instructions / Follow-Up Instructions / Follow-Up New Medicine: * You will likely be taking one or more of these medications: 1. Percocet - Take, as directed, when you need it, every four to six hours to control your pain. 2. Coumadin - Thins your blood to lessen the chance of forming a blood clot. The dose of this is different for each person and is based on your blood tests that are done twice a week. * The most common side effects of pain medicine and iron are nausea and constipation. If nausea or constipation is too much of a problem or if you have any questions about your new medicines or doses, call [facility] at . We will try to help you manage these issues. VERY IMPORTANT TO READ AND REVIEW" Blood Clots and Blood Thinning Medicine: * You are given Coumadin during the immediate post-operative period to lessen the risk of blood clots forming in your legs and/or lungs. Coumadin is usually given for six weeks after surgery. * The prescription is for 2 mg tablets. At discharge, you should understand your dose and take it all at the same time every day, preferably after dinner. * You need to get your blood checked 1 - 2 times per week for six weeks or as directed. * If your dose needs to change, we will call you. Do not take your medication on the day of the blood test until we call you. Pain: * The immediate post-operative period after knee replacement surgery is often quite painful. * You are given a prescription for pain medicine. You should take it, as directed, when you need it, especially before physical therapy and before going to bed. Pain that interferes with sleep is very common and can last several months. * You will likely need pain medicine for the first four to six weeks. It will not stop all of the pain. The pain will lessen and as you feel better, you may change to milder pain medicine such as Tylenol. * The most common side effects of pain medicine are nausea and constipation, so don't take more than you need. Physical Therapy: * You will have physical therapy two or three times each week for four to six weeks after your surgery in order to regain your knee range of motion and to retrain your knee to work properly. * It is just as important to make sure you are getting your knee perfectly straight as it is to regain your knee bend. * Taking a pain pill an hour before therapy can help you have a more productive and comfortable therapy session if needed. Home Exercise: * You were shown a series of exercises (heel props, heel slides, etc.) in the hospital. Do these exercises three to four times each day including the exercises you were shown in physical therapy. Walking: * Get up and walk several times each day. For the first four weeks, try not to stand or walk for more than one hour at a time. If you do stand or walk for more than one hour, you will not hurt anything, but your knee and leg will likely swell. * As you feel comfortable, you may change from the walker or crutches to a cane and then to independent walking. SELF CARE INSTRUCTIONS AFTER TOTAL KNEE REPLACEMENT A. You may need to continue a physical therapy program after discharge from the hospital. There are several options available to you. Your doctor will assist you in selecting the best one for you. 1. An out-patient facility 2 to 3 times a week for therapy or home therapy. 2. Continue working on all exercises taught to you in the hospital. Your goals should be to increase bending of your knee to 90 degrees and beyond and to fully straighten your knee. B. You may progress at your own pace from walking with a walker or crutches to a cane; then to no assistive devices. C. Make walking a part of your daily routine. Be up as much as comfortable with rest periods throughout the day. Rest with leg elevation is very important. Use the ice wrap frequently for the first 3-4 weeks. D. There are no restrictions on activities. You may ride in a car, shop, participate in appraiser auditor and all social activities. E. Wear the long elastic stockings (FERNANDO hose) 20 hours a day for six weeks after surgery. They can be removed several times a day for laundering and for a shower. F. Do not place a pillow behind your knee when resting. A pillow at your ankle is okay. VERY IMPORTANT TO READ AND REVIEW A. Take Coumadin, Aspirin or Lovenox (blood thinning medications) as directed by your doctor. If on Coumadin, have a pro-time (blood test) drawn according to your doctor's instructions. This will tell the doctor how well the Coumadin is thinning your blood. 1. YOU WILL BE GIVEN AN ORDER AT DISCHARGE FOR PT/INR (BLOOD WORK). PLEASE HAVE THIS DONE INSTRUCTED. PLEASE CALL OUR OFFICE AFTER YOUR BLOODWORK IS COMPLETE SO WE CAN TRACK YOUR RESULTS. IF YOU ARE GOING TO OUTPATIENT PHYSICAL THERAPY, YOU WILL NEED TO GO TO OUTPATIENT TESTING TO HAVE IT DRAWN. B. There are a few signs you need to watch for after you are home. Call [facility] if you notice any of the followin. Increased severe knee pain. Some pain is expected especially when you exercise. 2. Increased swelling in your leg or knee; pain or swelling of the calf muscle in either lower leg. 3. Any fluid drainage from the incision. 4. Shortness of breath or chest pain. C. Please call [facility] at if you have any concerns or questions about your operation or recovery. The doctor or his nurse will return your call promptly. D. You must take antibiotics before dental work, bladder, bowel or other surgery. Call the office to obtain a prescription at least 2 days prior to your appointment. * CALL IF INCREASED PAIN, REDNESS, DRAINAGE OR FEVER GREATER THAT 101. * Sutures should be removed 12-14 days after surgery unless you are on chronic steriods, then it will be 14-18 days after surgery. Call your doctor if: * Temperature above 101 degrees F. * Pain not relieved by pain medicine ordered. * Increased drainage or redness from incision. * Notify your doctor with any questions or concerns. Current Hospital Diet Patient's current hospital diet: Gluten Free Diet Discharge Diet Recommended Diet: Gluten Free Diet Procedures Procedures Performed: Right Knee: Patellar Resurfacing and Revision of Distal Femoral Implants Pending Studies Studies pending at discharge: no Medical Emergencies . Who to Call and When: Medical Emergencies: If at any time you feel your situation is an emergency, please call 911 immediately. . Non-Emergent Contact Non-Emergency issues call your: Primary Care Provider, Surgeon Call Non-Emergent contact if: temperature is above 101, wound has increased drainage, wound has increased redness, wound has increased pain, you have any medication questions . "Provider Documentation" section prepared by Volodymyr Conway PA-C. . [facility] Search Results: no issues identified
--- NOTE | 2017-12-04 09:30 | Orthopedic Progress Note ---
Orthopedic Progress Note Date of Service December 04, 2017. Subjective Post OP Day: 1 Reports: feeling well, pain controlled w PO medications, Denies: complaints, chest pain, SOB, nausea / vomiting, light headedness, calf pain Additional Notes: states he did not sleep well. He has been doing well with pain control with Percocet and Zofran. Objective calves soft nontender, N/V intact, capillary refill less than 2 sec., dressing C /D/I, incision C/D/I, A&O x3, toes mobile, CMS intact Dressings are dry. Scant drainage. No active drainage. Expected post op edema/ ecchymosis. Date Time Temp Pulse Resp B/P (MAP) Pulse Ox O2 Delivery O2 Flow Rate FiO2 12/04/17 06:59 36.9 87 18 149/76 (100) 93 Room Air 12/04/17 03:25 37.1 94 16 102/72 (82) 96 Room Air 12/03/17 23:40 Room Air 12/03/17 23:37 37.1 100 16 130/77 (94) 93 Room Air 12/03/17 17:55 36.5 98 16 134/83 (100) 95 Room Air 12/03/17 16:55 36.7 84 16 142/88 (106) 93 Nasal Cannula 2.0 12/03/17 16:13 36.6 89 16 138/86 (103) 93 Nasal Cannula 2.0 12/03/17 15:30 95 Nasal Cannula 2.0 12/03/17 15:20 36.4 90 16 132/87 (102) 95 Nasal Cannula 2.0 12/03/17 15:13 97 Nasal Cannula 2.0 12/03/17 14:57 97 Nasal Cannula 2.0 12/03/17 14:53 36.6 89 16 102/54 (70) 98 Nasal Cannula 2.0 12/03/17 14:30 82 18 132/81 97 Nasal Cannula 2 12/03/17 14:15 36.1 81 17 127/76 98 Nasal Cannula 2 12/03/17 14:05 85 14 120/77 97 Nasal Cannula 2 12/03/17 13:55 89 19 126/79 97 Nasal Cannula 2 12/03/17 13:45 89 19 138/76 96 Nasal Cannula 2 12/03/17 13:35 87 19 127/80 98 Oxymask 5 12/03/17 13:27 36.2 88 20 115/72 98 Oxymask 5 Laboratory Results 24 Hours: Test 12/04/17 06:40 Hematocrit 33.1 % Hemoglobin 11.3 g/dL Prothromb Time International Ratio 1.0 Prothrombin Time 10.6 SECONDS Assessment & Plan Assessment: Right knee s/p patellar resurfacing and revision of femoral implant Plan: PT/OT today anticipate discharge to home today continue use of walker and knee immobilizer x1 week follow up in PT on friday as scheduled coumadin per nomogram prior to discharge [facility]AT Discharge Planning Discharge Planning: home Pain Management: Percocet DVT Prophylaxis: TEDs, SCDs, Coumadin Therapy: Physical Therapy
[2017-12-04] MEDS ORDERED: AZIT-60 PO (10:34)
[2017-12-04] MEDS ORDERED: WARFARIN SOD 5 MG TAB PO ONE (11:45)
[2017-12-04 11:54] VITALS: BP 149/76; PULSE 87; TEMP 36.9; O2SAT 93
--- NOTE | 2017-12-04 18:39 | [facility] Operative Report ---
Operative Report Operative Date December 03, 2017. Pre-Operative Diagnosis Right Knee Patellar Arthritis with Possible Femoral Implant Loosening Post-Operative Diagnosis Right Knee Patellar Arthritis with Femoral Implant Loosening Procedure(s) Performed Right Knee: Patellar Resurfacing and Revision of Distal Femoral Implants Surgeon Dr. Boles [facility] Surgeon(s) [facility] Estimated Blood Loss 200 ml Findings Right knee femoral implant loosening and patellar arthritis Specimens Culture #1--Right Knee Synovium--for routine culture and sensitivity, gram stain, aerobes and anaerobes--sent to lab at 1143 A. Removed Hardware Right Knee (Femoral Explants x2) Drains None Anesthesia Type MAC Spinal Regional Complication(s) none Disposition no Indications This 62-year-old white male presented to the office complaints of continued right knee pain after falling on his right total knee arthroplasty. He had tried conservative care measures including activity modification and use of a cane without improvement. He elected to proceed with surgical intervention after being educated about potential risks and outcomes. Preoperative imaging was obtained. Description of Procedure Patient was administered a spinal anesthetic and then taken to the operating room where he was given sedation. He was prepped and draped in usual sterile fashion. Please see Dr. Boles's operative report for specifics of the procedure. I was present for the entire case from initial patient positioning through final wound closure. Assistance was provided in tissue retraction, hemostasis, hardware removal, trial implant placement, final implant placement, and final wound closure. Patient was taken to the recovery room in satisfactory condition. I attest to the content of the Intraoperative Record and any orders documented therein. Any exceptions are noted below.
== END 2017-12-04 14:30 | disposition home health service (06) | DRG 468 ==
LOC: C.ACU 08:28 → C.3E 08:29 → ENRESERV 14:16
PROVIDERS: ADMIT Physical Medicine & Rehabilitation Sports Medicine; ATTEND Physical Medicine & Rehabilitation Sports Medicine
PROC: 0SSC04Z Reposition Right Knee Joint with Internal Fixation Device, Open Approach (ICD-10-PCS; principal; 2017-12-03 11:00)
PROC: 0SPC0JZ Removal of Synthetic Substitute from Right Knee Joint, Open Approach (ICD-10-PCS; principal; 2017-12-03 11:00)
PROC: 0SRT0J9 Replacement of Right Knee Joint, Femoral Surface with Synthetic Substitute, Cemented, Open Approach (ICD-10-PCS; principal; 2017-12-03 11:00)
DX: T84.032A Mechanical loosening of internal right knee prosthetic joint, initial encounter (principal); J45.909 Unspecified asthma, uncomplicated; G47.30 Sleep apnea, unspecified; M06.9 Rheumatoid arthritis, unspecified; M17.11 Unilateral primary osteoarthritis, right knee; K21.9 Gastro-esophageal reflux disease without esophagitis; K90.0 Celiac disease; I10 Essential (primary) hypertension; Z88.2 Allergy status to sulfonamides; Z96.651 Presence of right artificial knee joint; Y92.019 Unspecified place in single-family (private) house as the place of occurrence of the external cause; W19.XXXS Unspecified fall, sequela